=== PATIENT | male | born 1975 | race African-American/Black ===

== ENCOUNTER 2024-01-24 11:05 | Observation (INO) ==
[2024-01-24] MEDS: ASPIRIN 81 MG CHEWTAB PO ONE (11:11)
[2024-01-24] MEDS: NITROSTAT SL PRN (11:12)
--- NOTE | 2024-01-24 11:14 | DR.CP ---
HPI Time Seen Time Seen by Provider: 01/24/24 11:14 PMH PMH Past Surgical History: Yes Surgical History: Appendectomy Family History Family Medical History: Diabetes Mellitus Social History Do you use any recreational Drugs:: Yes (marijuana) PE Vitals Vitals: Vital Signs Temperature 98.1 F Pulse Rate 61 Pulse Rate 54 Pulse Rate 56 Pulse Rate 48 Pulse Rate 46 Pulse Rate 50 Pulse Rate 55 Pulse Rate 52 Pulse Rate 54 Pulse Rate 54 Pulse Rate 51 Pulse Rate 53 Pulse Rate 51 Pulse Rate 53 Pulse Rate 58 Pulse Rate 62 Pulse Rate 82 Pulse Rate 81 Pulse Rate 78 Pulse Rate 67 Respiratory Rate 16 Respiratory Rate 21 Respiratory Rate 18 Respiratory Rate 20 Respiratory Rate 20 Respiratory Rate 22 Respiratory Rate 20 Respiratory Rate 22 Respiratory Rate 22 Respiratory Rate 22 Respiratory Rate 19 Respiratory Rate 22 Respiratory Rate 22 Respiratory Rate 25 Respiratory Rate 21 Respiratory Rate 46 Respiratory Rate 20 Respiratory Rate 20 Respiratory Rate 20 Respiratory Rate 44 Respiratory Rate 40 Respiratory Rate 20 Respiratory Rate 20 Respiratory Rate 20 Blood Pressure 123/75 Blood Pressure 125/76 Blood Pressure 158/90 Blood Pressure 157/94 Blood Pressure 155/91 Blood Pressure 133/73 Blood Pressure 135/79 Blood Pressure 137/81 Blood Pressure 145/89 Blood Pressure 145/90 Blood Pressure 138/82 Blood Pressure 135/86 Blood Pressure 124/80 Blood Pressure 132/79 Blood Pressure 145/92 O2 Sat by Pulse Oximetry 99 O2 Sat by Pulse Oximetry 100 O2 Sat by Pulse Oximetry 100 O2 Sat by Pulse Oximetry 100 O2 Sat by Pulse Oximetry 100 O2 Sat by Pulse Oximetry 100 O2 Sat by Pulse Oximetry 100 O2 Sat by Pulse Oximetry 99 O2 Sat by Pulse Oximetry 99 O2 Sat by Pulse Oximetry 99 O2 Sat by Pulse Oximetry 100 O2 Sat by Pulse Oximetry 100 O2 Sat by Pulse Oximetry 100 O2 Sat by Pulse Oximetry 100 O2 Sat by Pulse Oximetry 92 O2 Sat by Pulse Oximetry 99 O2 Sat by Pulse Oximetry 96 O2 Sat by Pulse Oximetry 98 O2 Sat by Pulse Oximetry 97 O2 Sat by Pulse Oximetry 97 ROR Labs Reviewed 01/26/24 04:30 01/26/24 04:30 Laboratory: WBC 3.5 X10^3/uL (3.6-10.0) L 01/24/24 11:10 RBC 5.24 X10^6/uL (4.7-6.0) 01/24/24 11:10 Hgb 16.0 g/dL (13.5-18.0) 01/24/24 11:10 Hct 48.5 % (42.0-54.0) 01/24/24 11:10 MCV 92.4 fL (80.0-100.0) 01/24/24 11:10 MCH 30.5 pg (27.0-34.0) 01/24/24 11:10 MCHC 33.0 g/dL (33.0-35.0) 01/24/24 11:10 RDW 13.5 % (11.6-16.5) 01/24/24 11:10 Plt Count 185 X10^3/uL (150.0-450.0) 01/24/24 11:10 MPV 7.6 fL (7.4-11.0) 01/24/24 11:10 Neut % (Auto) 22.9 % (42.0-75.0) L 01/24/24 11:10 Lymph % (Auto) 46.8 % (21.0-51.0) 01/24/24 11:10 Ritchie % (Auto) 9.8 % (0.0-13.0) 01/24/24 11:10 Eos % (Auto) 19.5 % (0.9-2.9) H 01/24/24 11:10 Baso % (Auto) 1.0 % (0.2-1.0) 01/24/24 11:10 Neut # (Auto) 0.8 x10^3/uL (2.2-4.8) L 01/24/24 11:10 Lymph # (Auto) 1.6 X10^3/uL (1.3-2.9) 01/24/24 11:10 Ritchie # (Auto) 0.3 x10^3/uL (0.3-0.8) 01/24/24 11:10 Eos # (Auto) 0.7 x10^3/uL (0.0-0.2) H 01/24/24 11:10 Baso # (Auto) 0.0 X10^3/uL (0.0-0.1) 01/24/24 11:10 Absolute Nucleated RBC 0.5 /100WBC 01/24/24 11:10 PT 12.5 SECONDS (11.8-14.3) 01/24/24 11:10 INR Target Range - 01/24/24 11:10 INR 0.95 (0.8-1.3) 01/24/24 11:10 APTT 31.4 SECONDS (22.9-36.5) 01/24/24 11:10 PTT Comment - 01/24/24 11:10 D-Dimer 1.21 ug/ml (0.0-0.57) H 01/24/24 11:10 Sodium 141 mmol/L (136-145) 01/24/24 11:10 Corrected Sodium TNP 01/24/24 11:10 Potassium 4.0 mmol/L (3.5-5.1) 01/24/24 11:10 Chloride 102 mmol/L (98-107) 01/24/24 11:10 Carbon Dioxide 34.8 mmol/L (21-32) H 01/24/24 11:10 BUN 17 mg/dL (7-18) 01/24/24 11:10 Creatinine 1.02 mg/dL (0.70-1.30) 01/24/24 11:10 Est GFR (MDRD) Af Amer > 60 (>60) 01/24/24 11:10 Est GFR (MDRD) Non-Af > 60 (>60) 01/24/24 11:10 Glucose 98 mg/dL (65-99) 01/24/24 11:10 Calcium 8.8 mg/dL (8.5-10.1) 01/24/24 11:10 Corrected Calcium TNP 01/24/24 11:10 Magnesium 1.8 mg/dL (2.0-2.9) L 01/24/24 13:12 Total Bilirubin 0.20 mg/dL (0.2-1.0) 01/24/24 11:10 AST 31 Units/L (15-37) 01/24/24 11:10 ALT 33 Units/L (12-78) 01/24/24 11:10 Alkaline Phosphatase 103 Units/L (46-116) 01/24/24 11:10 Creatine Kinase 149 Units/L (39-308) 01/24/24 11:10 Troponin I High Sens 5.3 ng/L (4.0-60.0) 01/24/24 13:12 B-Natriuretic Peptide < 5.0 pg/mL (0-79) 01/24/24 11:10 Total Protein 7.8 g/dL (6.4-8.2) 01/24/24 11:10 Albumin 3.6 g/dL (3.4-5.0) 01/24/24 11:10 Globulin 4.2 g/dL (2.5-4.5) 01/24/24 11:10 Albumin/Globulin Ratio 0.9 Ratio (1.1-2.1) L 01/24/24 11:10 Thyroxine (T4) 6.1 ug/dL (4.7-13.3) 01/24/24 13:12 TSH 3rd Generation 2.240 uIU/mL (0.358-3.74) 01/24/24 13:12 Opioid Opioid Risk Tool Age (Rik box if 16-45): No History of Preadolescent Sexual Abuse: No Total: 0 Total Score Risk Category: Low Risk Copyright: Carlos Enrique WILKINS predicting aberrant behaviors Discharge Plan Diagnosis Discharge Problem: Chest pain, Elevated d-dimer, Pulmonary embolism Discharge Plan Patient Disposition: 09 ADMITTED INPATIENT Condition: Stable Orders to Discharge Patient Discharge Orders: Discharge (Routine); Ordered 01/26/24 Ordered By: PEREZ FELIX
[2024-01-24 11:23] LABS: EOSINOPHILS # (AUTO) 0.7 x10^3/uL (0.0-0.2); EOSINOPHILS % (AUTO) 19.5 % (0.9-2.9); HEMATOCRIT 48.5 % (42.0-54.0); LYMPHOCYTES # (AUTO) 1.6 X10^3/uL (1.3-2.9); LYMPHOCYTES % (AUTO) 46.8 % (21.0-51.0); MEAN CORPUSCULAR HEMOGLOBIN 30.5 pg (27.0-34.0); MEAN CORPUSCULAR VOLUME 92.4 fL (80.0-100.0); MEAN PLATELET VOLUME 7.6 fL (7.4-11.0); MONOCYTES # (AUTO) 0.3 x10^3/uL (0.3-0.8); MONOCYTES % (AUTO) 9.8 % (0.0-13.0); NEUTROPHILS # (AUTO) 0.8 x10^3/uL (2.2-4.8); NEUTROPHILS % (AUTO) 22.9 % (42.0-75.0); PLATELET COUNT 185 X10^3/uL (150.0-450.0); RED BLOOD COUNT 5.24 X10^6/uL (4.7-6.0); RED CELL DISTRIBUTION WIDTH 13.5 % (11.6-16.5); WHITE BLOOD COUNT 3.5 X10^3/uL (3.6-10.0)
[2024-01-24 11:28] LABS: INR 0.95 (0.8-1.3)
[2024-01-24] MEDS: TORADOL 30 MG VIAL IVP ONE (11:30)
[2024-01-24] MEDS: PEPCID 20 MG VIAL IVP ONE (11:30)
[2024-01-24 11:38] LABS: ALANINE AMINOTRANSFERASE 33 Units/L (12-78); ALBUMIN 3.6 g/dL (3.4-5.0); ALKALINE PHOSPHATASE 103 Units/L (46-116); ASPARTATE AMINO TRANSFERASE 31 Units/L (15-37); BLOOD UREA NITROGEN 17 mg/dL (7-18); CALCIUM 8.8 mg/dL (8.5-10.1); CARBON DIOXIDE 34.8 mmol/L (21-32); CHLORIDE 102 mmol/L (98-107); CREATINE KINASE 149 Units/L (39-308); CREATININE 1.02 mg/dL (0.70-1.30); GLUCOSE 98 mg/dL (65-99); SODIUM 141 mmol/L (136-145); TOTAL PROTEIN 7.8 g/dL (6.4-8.2); eGFR NON BLACK RACES > 60 (>60)
--- NOTE | 2024-01-24 11:44 | RAD ---
EXAM:CHEST, 1 VIEWHISTORY:CHEST PAIN;COMPARISON:No relevant prior studies were available for comparison at the time of interpretation.TECHNIQUE:CHEST, 1 VIEWFINDINGS:Chest:Lines and tubes: Cardiac leads overlie the chest.Mediastinum: Cardiac and mediastinal shadow is within normal limits for size and contour.Pulmonary vessels: No pulmonary vascular congestion.Lung chakraborty: No suspicious airspace opacity.Pleura: No effusion. No pneumothorax.Bones and soft tissues: No acute osseous or soft tissue abnormality.IMPRESSION:1. No acute cardiopulmonary abnormalityTHIS IS AN ELECTRONICALLY VERIFIED FINAL REPORT01/24/2024 11:41 AM - Electronically signed by Moe Yoder MD
[2024-01-24] MEDS: HEPARIN SODIUM IN D5W 25,000 UNITS/500 ML BAG IV PRN (14:34)
[2024-01-24] MEDS: HEPARIN SODIUM INJ 5000 UNITS IVP ONE (14:34)
--- NOTE | 2024-01-24 14:34 | VAS ---
EXAM: LOWER EXT VENOUS, BILATERAL HISTORY: DYSPNEA, ELEVATED D-DIMER; COMPARISON: None available. TECHNIQUE: Multiple lópez scale and color flow Doppler images of the deep venous system were obtained of the righ t and left lower extremity. FINDINGS: The deep venous system of the right and left lower extremities were evaluated from the level of the c ommon femoral vein through the popliteal vein. Normal color flow and augmentation can be observed. In addition, normal compression is seen throughout the deep venous system. IMPRESSION: Negative for DVT. THIS IS AN ELECTRONICALLY VERIFIED FINAL REPORT 01/24/2024 2:31 PM - Electronically signed by Diego Garcia MD
[2024-01-24] MEDS: NITROSTAT ONE (14:43)
[2024-01-24] MEDS: TORADOL 30 MG VIAL ONE (14:43)
[2024-01-24] MEDS: PEPCID 20 MG VIAL ONE (14:43)
[2024-01-24] MEDS: ASPIRIN 81 MG CHEWTAB ONE (14:43)
[2024-01-24] MEDS: HEPARIN SODIUM INJ 5000 UNITS ONE (14:46)
[2024-01-24] MEDS: HEPARIN SODIUM IN D5W 25,000 UNITS/500 ML BAG ONE (14:46)
[2024-01-24] MEDS: PEPCID 20 MG VIAL 20 MG in NS 50 ML IV 50 ML IV ONE (14:53)
[2024-01-24 15:15] VITALS: BMI 30.8
[2024-01-24 19:15] LABS: MAGNESIUM 1.8 mg/dL (2.0-2.9); T4 (THYROXINE) 6.1 ug/dL (4.7-13.3); TSH (3RD GENERATION) 2.24 uIU/mL (0.358-3.74)
[2024-01-24] MEDS ORDERED: CONSULT PHARMACY - POTASSIUM & MAGNESIUM XX SCH (20:00)
[2024-01-24] MEDS: PEPCID 20 MG VIAL IVP SCH (20:26)
[2024-01-24] MEDS: ZyrTEC TAB 10 MG PO SCH (20:26)
[2024-01-24] MEDS: MAG-OX TAB PO SCH (20:26)
[2024-01-25 02:44] LABS: BASOPHILS # (AUTO) 0.1 X10^3/uL (0.0-0.1); BASOPHILS % (AUTO) 2.5 % (0.2-1.0); EOSINOPHILS # (AUTO) 0.7 x10^3/uL (0.0-0.2); EOSINOPHILS % (AUTO) 17.9 % (0.9-2.9); HEMATOCRIT 45.1 % (42.0-54.0); HEMOGLOBIN 14.9 g/dL (13.5-18.0); LYMPHOCYTES # (AUTO) 1.5 X10^3/uL (1.3-2.9); MEAN CORPUSCULAR HEMOGLOBIN 30.3 pg (27.0-34.0); MEAN CORPUSCULAR HGB CONC 33.1 g/dL (33.0-35.0); MEAN CORPUSCULAR VOLUME 91.5 fL (80.0-100.0); MEAN PLATELET VOLUME 7.2 fL (7.4-11.0); MONOCYTES # (AUTO) 0.3 x10^3/uL (0.3-0.8); MONOCYTES % (AUTO) 7.4 % (0.0-13.0); NEUTROPHILS # (AUTO) 1.3 x10^3/uL (2.2-4.8); NEUTROPHILS % (AUTO) 34.2 % (42.0-75.0); PLATELET COUNT 170 X10^3/uL (150.0-450.0); RED BLOOD COUNT 4.93 X10^6/uL (4.7-6.0); RED CELL DISTRIBUTION WIDTH 13.8 % (11.6-16.5); WHITE BLOOD COUNT 3.9 X10^3/uL (3.6-10.0)
[2024-01-25 03:02] LABS: ALANINE AMINOTRANSFERASE 26 Units/L (12-78); ALBUMIN 3.2 g/dL (3.4-5.0); ALKALINE PHOSPHATASE 92 Units/L (46-116); ASPARTATE AMINO TRANSFERASE 25 Units/L (15-37); BLOOD UREA NITROGEN 10 mg/dL (7-18); CALCIUM 7.9 mg/dL (8.5-10.1); CARBON DIOXIDE 28.1 mmol/L (21-32); CHLORIDE 104 mmol/L (98-107); COR CA(FOR HYPOALB) 8.5 mg/dL (8.5-10.1); CREATININE 0.95 mg/dL (0.70-1.30); GLUCOSE 105 mg/dL (65-99); MAGNESIUM 1.6 mg/dL (2.0-2.9); SODIUM 138 mmol/L (136-145); eGFR NON BLACK RACES > 60 (>60)
[2024-01-25] MEDS ORDERED: CONSULT PHARMACY - POTASSIUM & MAGNESIUM XX SCH (07:00)
[2024-01-25] MEDS: MAG-OX TAB PO SCH (09:31)
--- NOTE | 2024-01-25 11:42 | NM ---
EXAM: PERFUSION LUNG SCAN ONLY HISTORY: CP, ELEVATED D DIMER; 6.0mCi 99mTc MAAPerfusion onlyChest xray to follow COMPARISON: Chest imaging dated: 01/24/2024 TECHNIQUE: Perfusion only study was performed. Subsequently, following the intravenous administration of 6 mCi Tc-99m MAA, planar lung images were also obtained in multiple projections. FINDINGS: There is a moderate defect in the superior segment of the left lower lobe and segmental defect in the left lower lobe.. IMPRESSION: Intermediate probability for pulmonary embolus.. Consider CTA of the chest for further assessment THIS IS AN ELECTRONICALLY VERIFIED FINAL REPORT 01/25/2024 11:39 AM - Electronically signed by Andrew Blanco MD
--- NOTE | 2024-01-25 13:21 | RAD ---
EXAM:CHEST, 1 VIEWHISTORY:compare with lung scan;COMPARISON:Prior study or studies were utilized for comparison during interpretation with the most relevant dated 01/24/2024TECHNIQUE:CHEST, 1 VIEWFINDINGS:Chest:Lines and tubes: Cardiac leads overlie the chest.Mediastinum: Cardiac and mediastinal shadow is within normal limits for size and contour.Pulmonary vessels: No pulmonary vascular congestion.Lung chakraborty: No suspicious airspace opacity.Pleura: No effusion. No pneumothorax.Bones and soft tissues: No acute osseous or soft tissue abnormality.IMPRESSION:1. No acute cardiopulmonary abnormalityTHIS IS AN ELECTRONICALLY VERIFIED FINAL REPORT01/25/2024 1:18 PM - Electronically signed by Moe Yoder MD
[2024-01-25] MEDS: MAALOX or MYLANTA PO PRN (17:00)
[2024-01-25] MEDS: PREDNISONE TAB 10 MG PO SCH ×2 (17:00→23:44)
[2024-01-25 18:38] LABS: BASOPHILS % (AUTO) 0.9 % (0.2-1.0); EOSINOPHILS # (AUTO) 0.9 x10^3/uL (0.0-0.2); HEMATOCRIT 47.2 % (42.0-54.0); HEMOGLOBIN 15.6 g/dL (13.5-18.0); LYMPHOCYTES # (AUTO) 1.8 X10^3/uL (1.3-2.9); LYMPHOCYTES % (AUTO) 36.5 % (21.0-51.0); MEAN CORPUSCULAR HEMOGLOBIN 30.4 pg (27.0-34.0); MEAN CORPUSCULAR HGB CONC 33.1 g/dL (33.0-35.0); MEAN PLATELET VOLUME 7.3 fL (7.4-11.0); MONOCYTES # (AUTO) 0.4 x10^3/uL (0.3-0.8); MONOCYTES % (AUTO) 7.5 % (0.0-13.0); NEUTROPHILS # (AUTO) 1.9 x10^3/uL (2.2-4.8); NEUTROPHILS % (AUTO) 38.1 % (42.0-75.0); PLATELET COUNT 172 X10^3/uL (150.0-450.0); RED BLOOD COUNT 5.13 X10^6/uL (4.7-6.0); RED CELL DISTRIBUTION WIDTH 13.6 % (11.6-16.5)
[2024-01-25 19:13] LABS: CRYPTOSPORIDIUM PARVUM ANTIGEN NEGATIVE (NEGATIVE); GIARDIA LAMBLIA ANTIGEN NEGATIVE (NEGATIVE)
[2024-01-25] MEDS: LEVSIN/MAALOX/LIDOC VISC PO ONE (20:09)
[2024-01-25] MEDS: TORADOL 30 MG VIAL IVP ONE (20:09)
[2024-01-25] MEDS: PROTONIX INJ 40 MG VIAL IVP SCH (21:04)
[2024-01-26] MEDS: PREDNISONE TAB 10 MG PO SCH (05:04)
[2024-01-26] MEDS: BENADRYL CAP 50 MG PO SCH (05:05)
[2024-01-26 05:39] LABS: BASOPHILS % (AUTO) 0.5 % (0.2-1.0); EOSINOPHILS % (AUTO) 0.1 % (0.9-2.9); HEMATOCRIT 48.5 % (42.0-54.0); HEMOGLOBIN 16.2 g/dL (13.5-18.0); LYMPHOCYTES # (AUTO) 0.7 X10^3/uL (1.3-2.9); LYMPHOCYTES % (AUTO) 17.1 % (21.0-51.0); MEAN CORPUSCULAR HEMOGLOBIN 30.4 pg (27.0-34.0); MEAN CORPUSCULAR HGB CONC 33.3 g/dL (33.0-35.0); MEAN CORPUSCULAR VOLUME 91.4 fL (80.0-100.0); MEAN PLATELET VOLUME 8.3 fL (7.4-11.0); MONOCYTES # (AUTO) 0.1 x10^3/uL (0.3-0.8); MONOCYTES % (AUTO) 2.3 % (0.0-13.0); NEUTROPHILS # (AUTO) 3.4 x10^3/uL (2.2-4.8); PLATELET COUNT 184 X10^3/uL (150.0-450.0); RED BLOOD COUNT 5.31 X10^6/uL (4.7-6.0); WHITE BLOOD COUNT 4.3 X10^3/uL (3.6-10.0)
[2024-01-26 05:47] LABS: ALANINE AMINOTRANSFERASE 32 Units/L (12-78); ALBUMIN 3.4 g/dL (3.4-5.0); ALKALINE PHOSPHATASE 95 Units/L (46-116); ASPARTATE AMINO TRANSFERASE 24 Units/L (15-37); BLOOD UREA NITROGEN 10 mg/dL (7-18); CALCIUM 8.8 mg/dL (8.5-10.1); CARBON DIOXIDE 28.9 mmol/L (21-32); CHLORIDE 102 mmol/L (98-107); COR NA(FOR HYPERGLY) 139 mmol/L (136-145); GLUCOSE 138 mg/dL (65-99); POTASSIUM 4.8 mmol/L (3.5-5.1); SODIUM 138 mmol/L (136-145); TOTAL PROTEIN 7.8 g/dL (6.4-8.2); eGFR NON BLACK RACES > 60 (>60)
[2024-01-26] MEDS: NS 100 ML IV 100 ML ONE (06:18)
[2024-01-26] MEDS: OMNIPAQUE 350 mg/mL 100 mL BTL 100 ML ONE (06:19)
--- NOTE | 2024-01-26 07:08 | CT ---
EXAM:CTA chest with contrast for pulmonary embolusHISTORY:Pulmonary embolusTECHNIQUE:Axial postcontrast images with coronal and sagittal reformats. Three-dimensional maximum intensity projection images were obtained and evaluated. Dose reduction techniques were used with MA/kv adjusted for body size.COMPARISON:Perfusion lung scan 01/25/2024FINDINGS:There is no evidence for acute pulmonary thromboembolic disease. Specifically, no definite embolic disease in the left lower lobe. Examination of the mediastinum demonstrated no evidence for mediastinal mass, abnormal mediastinal or abnormal hilar adenopathy. No significant aortic abnormality identified. No pleural effusions are identified. No chest wall or axillary abnormality is identified. Those portions of the upper abdominal organs visualized appeared within normal limits to the limitations of early arterial injection timing with exception of cholelithiasis. There is a question of some gallbladder wall thickening and possible pericholecystic inflammation. Cholecystitis is not excluded. Gallbladder sonography is recommended for further evaluation of the gallbladder wall. Nuclear medicine biliary scan would be of further diagnostic value in assessing cystic duct patency. Diffuse thoracic spondylosis is present. Examination of the lung chakraborty demonstrated no evidence for pulmonary masses, alveolar infiltrates, areas of consolidation, or bronchiectasis. There is diffuse mild peribronchial thickening consistent with bronchitis which could be acute, chronic, or both. Best visualized on CT series 10, image 48 is a 4.5 mm nodular density which appears to be within the minor fissure most likely representing an intra fissural lymph node. However, follow-up chest CT in 6 months is recommended to assess for stability.IMPRESSION:No evidence for acute pulmonary thromboembolic diseaseCholelithiasis with a suggestion of possible early cholecystitis. Correlation with gallbladder sonography is recommended. Nuclear medicine biliary scan may also be of further diagnostic value in assessing cystic duct patency.No acute lung infiltrates4.5 mm nodular density which appears to be within minor fissure and most likely represents a benign intra fissural lymph node. However chest CT in 6 months is recommended to assess for stability.THIS IS AN ELECTRONICALLY VERIFIED FINAL REPORT01/26/2024 7:04 AM - Electronically signed by Floyd Andrade MD
--- NOTE | 2024-01-26 08:37 | EKG ---
Test Reason : Chest pain Blood Pressure : */* mmHG Vent. Rate : 71 BPM Atrial Rate : 71 BPM P-R Int : 182 ms QRS Dur : 78 ms QT Int : 390 ms P-R-T Axes : 48 10 19 degrees QTc Int : 423 ms Normal sinus rhythm with sinus arrhythmia Normal ECG When compared with ECG of 25-JAN-2024 23:50, (Unconfirmed) Vent. rate has increased BY 23 BPM Confirmed by Andrea Price MD ([id number]) on 01/26/2024 8:29:14 AM Referred By: Confirmed By: Andrea Price MD
--- NOTE | 2024-01-26 08:37 | EKG ---
Test Reason : Chest pain Blood Pressure : */* mmHG Vent. Rate : 48 BPM Atrial Rate : 48 BPM P-R Int : 208 ms QRS Dur : 70 ms QT Int : 436 ms P-R-T Axes : 35 36 36 degrees QTc Int : 389 ms Sinus bradycardia Otherwise normal ECG When compared with ECG of 25-JAN-2024 17:47, (Unconfirmed) No significant change was found Confirmed by Andrea Price MD ([id number]) on 01/26/2024 8:29:23 AM Referred By: Confirmed By: Andrea Price MD
--- NOTE | 2024-01-26 08:37 | EKG ---
Test Reason : chest pain Blood Pressure : */* mmHG Vent. Rate : 75 BPM Atrial Rate : 75 BPM P-R Int : 196 ms QRS Dur : 84 ms QT Int : 404 ms P-R-T Axes : -7 49 33 degrees QTc Int : 451 ms Normal sinus rhythm Normal ECG No previous ECGs available Confirmed by Andrea Price MD ([id number]) on 01/24/2024 1:46:35 PM Referred By: Confirmed By: Andrea Price MD
--- NOTE | 2024-01-26 08:37 | EKG ---
Test Reason : chest pain Blood Pressure : */* mmHG Vent. Rate : 50 BPM Atrial Rate : 50 BPM P-R Int : 200 ms QRS Dur : 92 ms QT Int : 440 ms P-R-T Axes : 34 56 8 degrees QTc Int : 401 ms Sinus bradycardia Possible Anterior infarct , age undetermined Abnormal ECG When compared with ECG of 24-JAN-2024 11:10, Vent. rate has decreased BY 25 BPM Confirmed by Andrea Price MD ([id number]) on 01/26/2024 8:29:02 AM Referred By: Confirmed By: Andrea Price MD
[2024-01-26 12:43] VITALS: BP 125/73; PULSE 60; RESP 22; TEMP 98; O2SAT 96
--- NOTE | 2024-01-26 13:33 | EKG ---
Test Reason : Chest pain Blood Pressure : */* mmHG Vent. Rate : 56 BPM Atrial Rate : 56 BPM P-R Int : 184 ms QRS Dur : 84 ms QT Int : 402 ms P-R-T Axes : 57 31 15 degrees QTc Int : 387 ms Sinus bradycardia Otherwise normal ECG When compared with ECG of 26-JAN-2024 06:04, No significant change was found Confirmed by Andrea Price MD ([id number]) on 01/27/2024 7:03:11 AM Referred By: Confirmed By: Andrea Price MD
--- NOTE | 2024-01-26 14:45 | US ---
EXAMINATION:GALL BLADDERHISTORY:RUQ PAIN; .COMPARISON STUDY:Report CT thorax 01/26/2024TECHNIQUE:Real-time grayscale, color flow, duplex Doppler spectral analysis right upper abdomenFINDINGS:The gallbladder is mildly distended. There is cholelithiasis with a 2.9 cm stone neck of the gallbladder. Gallbladder avalos are thickened measuring 4.4 mm diameter. Trace edema along the avalos of the gallbladder. The common bile duct measures 4.7 mm diameter.The liver measures 16 cm longitudinal oblique dimension. Normal venous waveforms within the imaged IVC, main portal vein.Right kidney measures 11.2 x 4.5 x 5.6 cm and contains multiple cysts.Pancreas obscured.IMPRESSION:Cholelithiasis, diffuse thickening of the avalos of the gallbladder with trace edema along the avalos of the gallbladder suspicious for acute cholecystitis. Recommend close clinical correlation and follow-up. Further diagnostic imaging would include a HIDA scan if clinically indicated.THIS IS AN ELECTRONICALLY VERIFIED FINAL REPORT01/26/2024 2:42 PM - Electronically signed by Lois Zapata MD
--- NOTE | 2024-02-02 17:20 | DR.H&P ---
H&P History & Physical for Day of: H&P Date: 01/24/24 Chief Complaint Chief Complaint: This is a 48-year-old male who is an ER admission after presenting earlier this morning with sudden onset of epigastric pain radiating across the upper abdomen, severe in nature. He reports cough, shortness of breath and mild nausea. ER workup included labs that revealed wbc 3.5, hgb 16, 1 7/1.02, elevated d-dimer at 1.21. EKG showed normal sinus rhythm. A chest xray was obtained and showed no acute process. He had a bilateral lower extremity doppler that was negative for dvt. Past Surgical History Surgical History: Appendectomy Family History Family Medical History: Diabetes Mellitus, Cancer, DE and Hypertension Social History Does patient currently use any type of tobacco product: Yes Have you used tobacco products in the last 12 months: Yes Type of Tobacco Use: Cigarettes Does any household member use tobacco: No Alcohol Use: None Drug Use: Marijuana Medications Home Medications: Home Medications Medication Instructions Recorded Confirmed Type NK 01/24/24 01/24/24 History Allergies Allergies Allergy/AdvReac Type Severity Reaction Status Date / Time iodine Allergy Verified 01/24/24 11:40 Labs 01/26/24 04:30 01/26/24 04:30 Labs: Laboratory WBC 4.3 X10^3/uL (3.6-10.0) 01/26/24 04:30 RBC 5.31 X10^6/uL (4.7-6.0) 01/26/24 04:30 Hgb 16.2 g/dL (13.5-18.0) 01/26/24 04:30 Hct 48.5 % (42.0-54.0) 01/26/24 04:30 MCV 91.4 fL (80.0-100.0) 01/26/24 04:30 MCH 30.4 pg (27.0-34.0) 01/26/24 04:30 MCHC 33.3 g/dL (33.0-35.0) 01/26/24 04:30 RDW 14.0 % (11.6-16.5) 01/26/24 04:30 Plt Count 184 X10^3/uL (150.0-450.0) 01/26/24 04:30 MPV 8.3 fL (7.4-11.0) 01/26/24 04:30 Neut % (Auto) 80.0 % (42.0-75.0) H 01/26/24 04:30 Lymph % (Auto) 17.1 % (21.0-51.0) L 01/26/24 04:30 [place]ukes % (Auto) 2.3 % (0.0-13.0) 01/26/24 04:30 Eos % (Auto) 0.1 % (0.9-2.9) L 01/26/24 04:30 Baso % (Auto) 0.5 % (0.2-1.0) 01/26/24 04:30 Neut # (Auto) 3.4 x10^3/uL (2.2-4.8) 01/26/24 04:30 Lymph # (Auto) 0.7 X10^3/uL (1.3-2.9) L 01/26/24 04:30 Dukes # (Auto) 0.1 x10^3/uL (0.3-0.8) L 01/26/24 04:30 Eos # (Auto) 0.0 x10^3/uL (0.0-0.2) 01/26/24 04:30 Baso # (Auto) 0.0 X10^3/uL (0.0-0.1) 01/26/24 04:30 Absolute Nucleated RBC 0.3 /100WBC 01/26/24 04:30 PT 12.5 SECONDS (11.8-14.3) 01/24/24 11:10 INR Target Range - 01/24/24 11:10 INR 0.95 (0.8-1.3) 01/24/24 11:10 APTT 82.1 SECONDS (22.9-36.5) H 01/26/24 04:30 PTT Comment - 01/26/24 04:30 D-Dimer 0.70 ug/ml (0.0-0.57) H 01/25/24 08:58 Sodium 138 mmol/L (136-145) 01/26/24 04:30 Corrected Sodium 139 mmol/L (136-145) 01/26/24 04:30 Potassium 4.8 mmol/L (3.5-5.1) 01/26/24 04:30 Chloride 102 mmol/L (98-107) 01/26/24 04:30 Carbon Dioxide 28.9 mmol/L (21-32) 01/26/24 04:30 BUN 10 mg/dL (7-18) 01/26/24 04:30 Creatinine 1.00 mg/dL (0.70-1.30) 01/26/24 04:30 Est GFR (MDRD) Af Amer > 60 (>60) 01/26/24 04:30 Est GFR (MDRD) Non-Af > 60 (>60) 01/26/24 04:30 Glucose 138 mg/dL (65-99) H 01/26/24 04:30 Calcium 8.8 mg/dL (8.5-10.1) 01/26/24 04:30 Corrected Calcium TNP 01/26/24 04:30 Magnesium 2.0 mg/dL (2.0-2.9) 01/26/24 04:30 Total Bilirubin 0.20 mg/dL (0.2-1.0) 01/26/24 04:30 AST 24 Units/L (15-37) 01/26/24 04:30 ALT 32 Units/L (12-78) 01/26/24 04:30 Alkaline Phosphatase 95 Units/L (46-116) 01/26/24 04:30 Creatine Kinase 120 Units/L (39-308) 01/25/24 18:30 Troponin I High Sens 7.2 ng/L (4.0-60.0) 01/25/24 18:30 Troponin I High Sens Cancelled 01/25/24 18:30 B-Natriuretic Peptide < 5.0 pg/mL (0-79) 01/24/24 11:10 Total Protein 7.8 g/dL (6.4-8.2) 01/26/24 04:30 Albumin 3.4 g/dL (3.4-5.0) 01/26/24 04:30 Globulin 4.4 g/dL (2.5-4.5) 01/26/24 04:30 Albumin/Globulin Ratio 0.8 Ratio (1.1-2.1) L 01/26/24 04:30 Thyroxine (T4) 6.1 ug/dL (4.7-13.3) 01/24/24 13:12 TSH 3rd Generation 2.240 uIU/mL (0.358-3.74) 01/24/24 13:12 Stl Occult Blood (IFOB) Negative (NEGATIVE) 01/25/24 18:25 Cryptosporid parvum Ag Negative (NEGATIVE) 01/25/24 18:25 Giardia lamblia Ag Negative (NEGATIVE) 01/25/24 18:25 Review of Systems Constitutional: No Symptoms Reported Eyes: No Symptoms Reported ENT: No Symptoms Reported Respiratory: Cough and Shortness of Breath Cardiovascular: Chest Pain Gastrointestinal: Nausea Genitourinary: No Symptoms Reported Musculoskeletal: No Symptoms Reported Skin: No Symptoms Reported Neurological: No Symptoms Reported Oriented: Normal Eyes: Normal Ear: Normal Nose: Normal Throat: Normal Respiratory: Clear Throughout Cardiovascular: Normal : Normal Auscultation: Bowel Sounds: Normal Palpation: Normal Tenderness: RUQ and Epigastric Skin: Normal Musculoskeletal: Normal Psychiatric: Normal Mood Description: Calm Speech Pattern: Clear Assessment/Plan (1) Elevated d-dimer: Status: Acute Plan: ADMIT, HEPARIN DRIP, ABG ON ROOM AIR, PT/PTT, TSH/FREE T4, ASPIRIN, PECPID, NITRO PRN, SUPPLEMENTAL 02 PRN, CARDIAC MONITORING. VQ SCAN PLANNED FOR AM. (2) Chest pain: Status: Acute
--- NOTE | 2024-02-02 17:21 | PCM.DCPLAN ---
DISCHARGE SUMMARY Admission Date Date of Admission: 01/24/24 Discharge Date Discharge Date: 01/26/24 Admission Diagnoses (1) Elevated d-dimer: Status: Acute (2) Chest pain: Status: Acute Discharge Diagnoses Discharge Diagnosis: improved elevated d-dimer, chest pain resolved. Discharge Medications Discharge Medications: Home Medication List NK 01/24/24 [History] Prescriptions: Hospital Course Latest Lab Results: Laboratory Last Values WBC 4.3 X10^3/uL (3.6-10.0) 01/26/24 04:30 RBC 5.31 X10^6/uL (4.7-6.0) 01/26/24 04:30 Hgb 16.2 g/dL (13.5-18.0) 01/26/24 04:30 Hct 48.5 % (42.0-54.0) 01/26/24 04:30 MCV 91.4 fL (80.0-100.0) 01/26/24 04:30 MCH 30.4 pg (27.0-34.0) 01/26/24 04:30 MCHC 33.3 g/dL (33.0-35.0) 01/26/24 04:30 RDW 14.0 % (11.6-16.5) 01/26/24 04:30 Plt Count 184 X10^3/uL (150.0-450.0) 01/26/24 04:30 MPV 8.3 fL (7.4-11.0) 01/26/24 04:30 Neut % (Auto) 80.0 % (42.0-75.0) H 01/26/24 04:30 Lymph % (Auto) 17.1 % (21.0-51.0) L 01/26/24 04:30 [place] % (Auto) 2.3 % (0.0-13.0) 01/26/24 04:30 Eos % (Auto) 0.1 % (0.9-2.9) L 01/26/24 04:30 Baso % (Auto) 0.5 % (0.2-1.0) 01/26/24 04:30 Neut # (Auto) 3.4 x10^3/uL (2.2-4.8) 01/26/24 04:30 Lymph # (Auto) 0.7 X10^3/uL (1.3-2.9) L 01/26/24 04:30 [place] # (Auto) 0.1 x10^3/uL (0.3-0.8) L 01/26/24 04:30 Eos # (Auto) 0.0 x10^3/uL (0.0-0.2) 01/26/24 04:30 Baso # (Auto) 0.0 X10^3/uL (0.0-0.1) 01/26/24 04:30 Absolute Nucleated RBC 0.3 /100WBC 01/26/24 04:30 PT 12.5 SECONDS (11.8-14.3) 01/24/24 11:10 INR Target Range - 01/24/24 11:10 INR 0.95 (0.8-1.3) 01/24/24 11:10 APTT 82.1 SECONDS (22.9-36.5) H 01/26/24 04:30 PTT Comment - 01/26/24 04:30 D-Dimer 0.70 ug/ml (0.0-0.57) H 01/25/24 08:58 Sodium 138 mmol/L (136-145) 01/26/24 04:30 Corrected Sodium 139 mmol/L (136-145) 01/26/24 04:30 Potassium 4.8 mmol/L (3.5-5.1) 01/26/24 04:30 Chloride 102 mmol/L (98-107) 01/26/24 04:30 Carbon Dioxide 28.9 mmol/L (21-32) 01/26/24 04:30 BUN 10 mg/dL (7-18) 01/26/24 04:30 Creatinine 1.00 mg/dL (0.70-1.30) 01/26/24 04:30 Est GFR (MDRD) Af Amer > 60 (>60) 01/26/24 04:30 Est GFR (MDRD) Non-Af > 60 (>60) 01/26/24 04:30 Glucose 138 mg/dL (65-99) H 01/26/24 04:30 Calcium 8.8 mg/dL (8.5-10.1) 01/26/24 04:30 Corrected Calcium TNP 01/26/24 04:30 Magnesium 2.0 mg/dL (2.0-2.9) 01/26/24 04:30 Total Bilirubin 0.20 mg/dL (0.2-1.0) 01/26/24 04:30 AST 24 Units/L (15-37) 01/26/24 04:30 ALT 32 Units/L (12-78) 01/26/24 04:30 Alkaline Phosphatase 95 Units/L (46-116) 01/26/24 04:30 Creatine Kinase 120 Units/L (39-308) 01/25/24 18:30 Troponin I High Sens 7.2 ng/L (4.0-60.0) 01/25/24 18:30 Troponin I High Sens Cancelled 01/25/24 18:30 B-Natriuretic Peptide < 5.0 pg/mL (0-79) 01/24/24 11:10 Total Protein 7.8 g/dL (6.4-8.2) 01/26/24 04:30 Albumin 3.4 g/dL (3.4-5.0) 01/26/24 04:30 Globulin 4.4 g/dL (2.5-4.5) 01/26/24 04:30 Albumin/Globulin Ratio 0.8 Ratio (1.1-2.1) L 01/26/24 04:30 Thyroxine (T4) 6.1 ug/dL (4.7-13.3) 01/24/24 13:12 TSH 3rd Generation 2.240 uIU/mL (0.358-3.74) 01/24/24 13:12 Stl Occult Blood (IFOB) Negative (NEGATIVE) 01/25/24 18:25 Cryptosporid parvum Ag Negative (NEGATIVE) 01/25/24 18:25 Giardia lamblia Ag Negative (NEGATIVE) 01/25/24 18:25 Hospital Course: This is a 48-year-old male who is an ER admission on 01/23 after presenting with sudden onset of epigastric pain radiating across the upper abdomen with cough, shortness of breath and mild nausea. ER workup included labs that revealed wbc 3.5, hgb 16, 17/1.02, elevated d-dimer at 1.21. EKG showed normal sinus rhythm. A chest xray was obtained and showed no acute process. He had a bilateral lower extremity doppler that was negative for dvt. Upon admission, he was started on a heprin drip, aspirin, pepcid, nitro prn, and supplemental 02 as needed. General surgery was consulted. His repeat d-dimer yesterday morning was 0.70. He refused ABG related to pain with draw. He was able to maintain oxygenation on room air at 99%. He had a VQ scan yesterday that showed intermediate probability for pulmonary embolus. We obtained a CTA chest that ruled out PE, but did show thickened gallbladder wall with gallstones and suspicion of acute cholecystitis. We obtained a gallbladder ultrasound that showed Cholelithiasis, diffuse thickening of the avalos of the gallbladder with trace edema along the avalos of the gallbladder suspicious for acute cholecystitis. His repeat chest xray this morning was clear. He states that his abdominal pain, shortness of breath have mostly resolved at this time. He is eager to discharge home related to needing to attend father's planned for tomorrow. We will allow him to discharge home. He will need to follow up with Dr. Babcock and has an appointment scheduled for 02/09 at 3:30 PM. Please see discharge plan for list of discharge medications and modifications that we made, electronic medical record for diagnostic tests and labs. The patient was instructed to return to the ER if condition changed or worsened unexpectedly.
== END 2024-01-26 14:17 | disposition home or self-care (01) ==
LOC: ICU 11:05 → ER 11:05 → OBSVTOIN 14:14 → INTOOBSV 14:14 → ICU 14:54
PROVIDERS: ADMIT Internal Medicine; ATTEND Internal Medicine
DX: R79.1 Abnormal coagulation profile; K21.9 Gastro-esophageal reflux disease without esophagitis; K80.00 Calculus of gallbladder with acute cholecystitis without obstruction; R10.11 Right upper quadrant pain; R94.31 Abnormal electrocardiogram [ECG] [EKG]; R07.89 Other chest pain; E83.42 Hypomagnesemia; R06.02 Shortness of breath

== ENCOUNTER 2024-05-15 21:19 | Observation (INO) ==
[2024-05-15] MEDS: APRESOLINE INJ 20 MG VIAL IVP ONE (21:47)
--- NOTE | 2024-05-15 21:48 | DR.CP ---
HPI Time Seen Time Seen by Provider: 05/15/24 21:48 PCP Primary Care Physician: LIVIA Complaint Chief Complaint:: PT AMBULATORY IN ED WITH C/O RIGHT UPPER ABD AND EPIGASTRIC PAIN SINCE EARILER TODAY. COVID-19 Coronavirus risk:travel/contact w/high risk person: No Has patient experienced Coronavirus symptoms: No Source History Provided: Patient Mode of Arrival Mode of Arrival: Ambulatory Timing Onset of Chief Complaint: 05/15/24 PMH PMH Past Medical History: No Past Surgical History: Yes Surgical History: Appendectomy Family History History of Family Medical Conditions: Yes Family Medical History: Diabetes Mellitus, Cancer, [place], Coronary Artery Disease and Hypertension Social History Does patient currently use any type of tobacco product: Yes Have you used tobacco products in the last 12 months: Yes Type of Tobacco Use: Cigarettes Does any household member use tobacco: No Alcohol Use: None Do you use any recreational Drugs:: Yes (MARIJUANA) Lives With: Alone Lives Where: Home Travel Risk Coronavirus risk:travel/contact w/high risk person: No Has patient experienced Coronavirus symptoms: No Infectious screening In the last 2 months have you had wt loss of >10#?: NO Have you had fever, night sweats or hemotysis?: No Have you traveled outside the country in the last 6 months?: No Isolation: Standard PE Vitals Vitals: Vital Signs Temperature 98.2 F Pulse Rate 61 Pulse Rate 56 Pulse Rate 56 Pulse Rate 61 Pulse Rate 60 Pulse Rate 60 Pulse Rate 58 Pulse Rate 58 Pulse Rate 60 Pulse Rate 67 Pulse Rate 61 Pulse Rate 60 Pulse Rate 57 Pulse Rate 66 Pulse Rate 62 Pulse Rate 63 Pulse Rate 63 Pulse Rate 69 Pulse Rate 63 Respiratory Rate 18 Respiratory Rate 18 Respiratory Rate 21 Respiratory Rate 19 Respiratory Rate 19 Respiratory Rate 22 Respiratory Rate 23 Respiratory Rate 23 Respiratory Rate 25 Respiratory Rate 34 Respiratory Rate 24 Respiratory Rate 26 Respiratory Rate 18 Respiratory Rate 42 Respiratory Rate 41 Respiratory Rate 34 Respiratory Rate 28 Respiratory Rate 22 Blood Pressure 112/56 Blood Pressure 125/64 Blood Pressure 142/70 Blood Pressure 121/62 Blood Pressure 124/63 Blood Pressure 130/72 Blood Pressure 142/74 Blood Pressure 142/74 Blood Pressure 149/71 Blood Pressure 175/109 Blood Pressure 174/102 Blood Pressure 182/97 Blood Pressure 213/112 Blood Pressure 190/111 Blood Pressure 177/103 Blood Pressure 177/103 O2 Sat by Pulse Oximetry 98 O2 Sat by Pulse Oximetry 98 O2 Sat by Pulse Oximetry 99 O2 Sat by Pulse Oximetry 99 O2 Sat by Pulse Oximetry 99 O2 Sat by Pulse Oximetry 99 O2 Sat by Pulse Oximetry 99 O2 Sat by Pulse Oximetry 99 O2 Sat by Pulse Oximetry 99 O2 Sat by Pulse Oximetry 100 O2 Sat by Pulse Oximetry 99 O2 Sat by Pulse Oximetry 98 O2 Sat by Pulse Oximetry 99 O2 Sat by Pulse Oximetry 100 O2 Sat by Pulse Oximetry 100 O2 Sat by Pulse Oximetry 98 O2 Sat by Pulse Oximetry 98 ROR Labs Reviewed 05/15/24 21:40 05/15/24 21:40 Laboratory: WBC 4.8 X10^3/uL (3.6-10.0) 05/15/24 21:40 RBC 4.79 X10^6/uL (4.7-6.0) 05/15/24 21:40 Hgb 14.9 g/dL (13.5-18.0) 05/15/24 21:40 Hct 44.3 % (42.0-54.0) 05/15/24 21:40 MCV 92.6 fL (80.0-100.0) 05/15/24 21:40 MCH 31.1 pg (27.0-34.0) 05/15/24 21:40 MCHC 33.6 g/dL (33.0-35.0) 05/15/24 21:40 RDW 12.7 % (11.6-16.5) 05/15/24 21:40 Plt Count 269 X10^3/uL (150.0-450.0) 05/15/24 21:40 MPV 7.4 fL (7.4-11.0) 05/15/24 21:40 Neut % (Auto) 35.1 % (42.0-75.0) L 05/15/24 21:40 Lymph % (Auto) 43.6 % (21.0-51.0) 05/15/24 21:40 [place] % (Auto) 7.2 % (0.0-13.0) 05/15/24 21:40 Eos % (Auto) 12.9 % (0.9-2.9) H 05/15/24 21:40 Baso % (Auto) 1.2 % (0.2-1.0) H 05/15/24 21:40 Neut # (Auto) 1.7 x10^3/uL (2.2-4.8) L 05/15/24 21:40 Lymph # (Auto) 2.1 X10^3/uL (1.3-2.9) 05/15/24 21:40 [place] # (Auto) 0.3 x10^3/uL (0.3-0.8) 05/15/24 21:40 Eos # (Auto) 0.6 x10^3/uL (0.0-0.2) H 05/15/24 21:40 Baso # (Auto) 0.1 X10^3/uL (0.0-0.1) 05/15/24 21:40 Absolute Nucleated RBC 0.1 /100WBC 05/15/24 21:40 Sodium 145 mmol/L (136-145) 05/15/24 21:40 Corrected Sodium TNP 05/15/24 21:40 Potassium 4.1 mmol/L (3.5-5.1) 05/15/24 21:40 Chloride 107 mmol/L (98-107) 05/15/24 21:40 Carbon Dioxide 30.1 mmol/L (21-32) 05/15/24 21:40 BUN 7 mg/dL (7-18) 05/15/24 21:40 Creatinine 1.44 mg/dL (0.70-1.30) H 05/15/24 21:40 Est GFR (MDRD) Af Amer > 60 (>60) 05/15/24 21:40 Est GFR (MDRD) Non-Af 56 (>60) L 05/15/24 21:40 Glucose 97 mg/dL (65-99) 05/15/24 21:40 Calcium 8.4 mg/dL (8.5-10.1) L 05/15/24 21:40 Corrected Calcium TNP 05/15/24 21:40 Total Bilirubin 0.30 mg/dL (0.2-1.0) 05/15/24 21:40 AST 15 Units/L (15-37) 05/15/24 21:40 ALT 18 Units/L (12-78) 05/15/24 21:40 Alkaline Phosphatase 101 Units/L (46-116) 05/15/24 21:40 Total Protein 6.7 g/dL (6.4-8.2) 05/15/24 21:40 Albumin 3.4 g/dL (3.4-5.0) 05/15/24 21:40 Globulin 3.3 g/dL (2.5-4.5) 05/15/24 21:40 Albumin/Globulin Ratio 1.0 Ratio (1.1-2.1) L 05/15/24 21:40 Amylase 118 Units/L (25-115) H 05/15/24 21:40 Lipase 215 Units/L (16-77) H 05/15/24 21:40 Opioid Opioid Risk Tool Age (Rik box if 16-45): No History of Preadolescent Sexual Abuse: No Total: 0 Total Score Risk Category: Low Risk Copyright: Carlos Enrique WILKINS predicting aberrant behaviors Discharge Plan Discharge Plan Patient Disposition: 01 HOME, SELF-CARE Condition: Stable Orders to Discharge Patient Discharge Orders: Transfer (Routine); Ordered 05/16/24 Ordered By: RANDY BENÍTEZ
[2024-05-15] MEDS: DEMEROL INJ IVP ONE (21:55)
[2024-05-15] MEDS: NS 1,000 ML IV 1,000 ML IV ONE (21:56)
[2024-05-15] MEDS: ZOFRAN INJ 4 MG VIAL IVP ONE (21:56)
[2024-05-15 21:58] LABS: BASOPHILS # (AUTO) 0.1 X10^3/uL (0.0-0.1); BASOPHILS % (AUTO) 1.2 % (0.2-1.0); EOSINOPHILS # (AUTO) 0.6 x10^3/uL (0.0-0.2); EOSINOPHILS % (AUTO) 12.9 % (0.9-2.9); HEMATOCRIT 44.3 % (42.0-54.0); HEMOGLOBIN 14.9 g/dL (13.5-18.0); LYMPHOCYTES # (AUTO) 2.1 X10^3/uL (1.3-2.9); LYMPHOCYTES % (AUTO) 43.6 % (21.0-51.0); MEAN CORPUSCULAR HEMOGLOBIN 31.1 pg (27.0-34.0); MEAN CORPUSCULAR HGB CONC 33.6 g/dL (33.0-35.0); MEAN CORPUSCULAR VOLUME 92.6 fL (80.0-100.0); MEAN PLATELET VOLUME 7.4 fL (7.4-11.0); MONOCYTES # (AUTO) 0.3 x10^3/uL (0.3-0.8); MONOCYTES % (AUTO) 7.2 % (0.0-13.0); NEUTROPHILS # (AUTO) 1.7 x10^3/uL (2.2-4.8); NEUTROPHILS % (AUTO) 35.1 % (42.0-75.0); PLATELET COUNT 269 X10^3/uL (150.0-450.0); RED BLOOD COUNT 4.79 X10^6/uL (4.7-6.0); RED CELL DISTRIBUTION WIDTH 12.7 % (11.6-16.5); WHITE BLOOD COUNT 4.8 X10^3/uL (3.6-10.0)
[2024-05-15 22:13] LABS: ALANINE AMINOTRANSFERASE 18 Units/L (12-78); ALBUMIN 3.4 g/dL (3.4-5.0); ALKALINE PHOSPHATASE 101 Units/L (46-116); AMYLASE 118 Units/L (25-115); ASPARTATE AMINO TRANSFERASE 15 Units/L (15-37); BLOOD UREA NITROGEN 7 mg/dL (7-18); CALCIUM 8.4 mg/dL (8.5-10.1); CARBON DIOXIDE 30.1 mmol/L (21-32); CHLORIDE 107 mmol/L (98-107); CREATININE 1.44 mg/dL (0.70-1.30); GLUCOSE 97 mg/dL (65-99); LIPASE 215 Units/L (16-77); POTASSIUM 4.1 mmol/L (3.5-5.1); SODIUM 145 mmol/L (136-145); TOTAL PROTEIN 6.7 g/dL (6.4-8.2); eGFR NON BLACK RACES 56 (>60)
[2024-05-16] MEDS ORDERED: XYLOCAINE 2 % (PLAIN) ONE (00:38)
[2024-05-16] MEDS ORDERED: KETAMINE HCL ONE (00:38)
[2024-05-16] MEDS ORDERED: ULTANE GAS IN ONE (00:38)
[2024-05-16] MEDS ORDERED: ZOFRAN INJ 4 MG VIAL IVP PRN ×2 (00:50)
[2024-05-16] MEDS ORDERED: DEMEROL INJ IVP PRN (00:50)
[2024-05-16] MEDS: NS 1,000 ML IV 1,000 ML IV SCH (01:11)
[2024-05-16 01:18] LABS: BILIRUBIN,URINE NEGATIVE (NEGATIVE); BLOOD/HEMOGLOBIN,URINE NEGATIVE (NEGATIVE); GLUCOSE, URINE NEGATIVE (NEGATIVE); KETONES,URINE NEGATIVE (NEGATIVE); LEUKOCYTE ESTERASE ,URINE NEGATIVE (NEGATIVE); NITRITES,URINE NEGATIVE (NEGATIVE); PROTEIN,URINE NEGATIVE (NEGATIVE); UROBILINOGEN,URINE NORMAL (NORMAL)
[2024-05-16 01:20] LABS: APPEARANCE,URINE CLEAR (CLEAR); COLOR,URINE STRAW (YELLOW)
[2024-05-16 01:23] VITALS: BMI 33.3
[2024-05-16 05:37] LABS: BASOPHILS # (AUTO) 0.1 X10^3/uL (0.0-0.1); BASOPHILS % (AUTO) 1.2 % (0.2-1.0); EOSINOPHILS # (AUTO) 0.5 x10^3/uL (0.0-0.2); EOSINOPHILS % (AUTO) 6.9 % (0.9-2.9); HEMATOCRIT 43.6 % (42.0-54.0); HEMOGLOBIN 14.5 g/dL (13.5-18.0); LYMPHOCYTES % (AUTO) 28.6 % (21.0-51.0); MEAN CORPUSCULAR HEMOGLOBIN 30.5 pg (27.0-34.0); MEAN CORPUSCULAR HGB CONC 33.3 g/dL (33.0-35.0); MEAN CORPUSCULAR VOLUME 91.5 fL (80.0-100.0); MEAN PLATELET VOLUME 7.4 fL (7.4-11.0); MONOCYTES # (AUTO) 0.3 x10^3/uL (0.3-0.8); MONOCYTES % (AUTO) 4.5 % (0.0-13.0); NEUTROPHILS # (AUTO) 4.1 x10^3/uL (2.2-4.8); NEUTROPHILS % (AUTO) 58.8 % (42.0-75.0); PLATELET COUNT 269 X10^3/uL (150.0-450.0); RED BLOOD COUNT 4.77 X10^6/uL (4.7-6.0)
[2024-05-16 05:53] LABS: ALANINE AMINOTRANSFERASE 17 Units/L (12-78); ALBUMIN 3.1 g/dL (3.4-5.0); ALKALINE PHOSPHATASE 78 Units/L (46-116); AMYLASE 102 Units/L (25-115); ASPARTATE AMINO TRANSFERASE 15 Units/L (15-37); BLOOD UREA NITROGEN 6 mg/dL (7-18); CALCIUM 8.4 mg/dL (8.5-10.1); CARBON DIOXIDE 29.5 mmol/L (21-32); CHLORIDE 109 mmol/L (98-107); COR CA(FOR HYPOALB) 9.1 mg/dL (8.5-10.1); GLUCOSE 89 mg/dL (65-99); LIPASE 102 Units/L (16-77); POTASSIUM 4.2 mmol/L (3.5-5.1); SODIUM 144 mmol/L (136-145); TOTAL PROTEIN 6.3 g/dL (6.4-8.2); eGFR NON BLACK RACES > 60 (>60)
[2024-05-16] MEDS: APRESOLINE INJ 20 MG VIAL ONE (06:58)
--- NOTE | 2024-05-16 11:06 | EKG ---
Test Reason : PREOP CLEARANCE Blood Pressure : */* mmHG Vent. Rate : 54 BPM Atrial Rate : 54 BPM P-R Int : 208 ms QRS Dur : 90 ms QT Int : 422 ms P-R-T Axes : 43 54 -48 degrees QTc Int : 400 ms Sinus bradycardia Anterior infarct , age undetermined Nonspecific T wave abnormality Abnormal ECG When compared with ECG of 26-JAN-2024 13:01, Anterior infarct is now present Nonspecific T wave abnormality now evident in Lateral leads Confirmed by Andrea Price MD ([id number]) on 05/16/2024 11:10:02 AM Referred By: Confirmed By: Andrea Price MD
--- NOTE | 2024-05-16 14:30 | RAD ---
EXAM:CHEST, 1 VIEWHISTORY:PRE-OP CLEARANCE;COMPARISON:Prior study or studies were utilized for comparison during interpretation with the most relevant dated 01/26/2020TECHNIQUE:CHEST, 1 VIEWFINDINGS:Chest:Lines and tubes: Cardiac leads overlie the chest.Mediastinum: Borderline cardiomegaly.Pulmonary vessels: No pulmonary vascular congestion.Lung chakraborty: No suspicious airspace opacity.Pleura: No effusion. No pneumothorax.Bones and soft tissues: No acute osseous or soft tissue abnormality.IMPRESSION:1. No acute cardiopulmonary abnormalityTHIS IS AN ELECTRONICALLY VERIFIED FINAL RAKYMY3805/16/2024 2:27 PM - Electronically signed by Moe Yoder MD
--- NOTE | 2024-05-16 14:50 | DR.H&P ---
H&P History & Physical for Day of: H&P Date: 05/16/24 Chief Complaint Chief Complaint: "I've been having some pain up here around the gallbladder and right upper quadrant. It started yesterday." History of Present Illness History of Present Illness: Fritz RushingJrMackenzie is a patient who was admitted on 05-16-2024 for inpatient observation. He is experiencing right upper quadrant pain that began earlier in the day. The patient reports having had similar pain in the past and is concerned about his current situation. Fritz denies shortness of breath, chest pain, itching, nausea, and rashes. He has not received any treatments specific to this pain as of the visit. He also indicated that he does not have any other medical problems or take any regular medications. His current illness has impacted his ability to eat comfortably, and he was advised to adhere to a low-fat meal today. Past Medical History Additional Medical History: Past medical history: none noted. Family history positive for diabetes mellitus type 2, common cancer, coronary artery disease, history of myocardial infarction, and hypertension. Past Surgical History Surgical History: Appendectomy Family History Family Medical History: Diabetes Mellitus, Cancer, [place] and Hypertension Social History Does patient currently use any type of tobacco product: Yes Have you used tobacco products in the last 12 months: Yes Type of Tobacco Use: Cigarettes Does any household member use tobacco: No Alcohol Use: None Drug Use: Marijuana Medications Home Medications: Home Medications Medication Instructions Recorded Confirmed Type NK 01/24/24 05/15/24 History Allergies Allergies Allergy/AdvReac Type Severity Reaction Status Date / Time iodine Allergy Verified 05/15/24 21:29 SEAFOOD Allergy Verified 05/15/24 21:29 Labs 05/16/24 05:08 05/16/24 05:08 Labs: Laboratory WBC 7.0 X10^3/uL (3.6-10.0) 05/16/24 05:08 RBC 4.77 X10^6/uL (4.7-6.0) 05/16/24 05:08 Hgb 14.5 g/dL (13.5-18.0) 05/16/24 05:08 Hct 43.6 % (42.0-54.0) 05/16/24 05:08 MCV 91.5 fL (80.0-100.0) 05/16/24 05:08 MCH 30.5 pg (27.0-34.0) 05/16/24 05:08 MCHC 33.3 g/dL (33.0-35.0) 05/16/24 05:08 RDW 13.0 % (11.6-16.5) 05/16/24 05:08 Plt Count 269 X10^3/uL (150.0-450.0) 05/16/24 05:08 MPV 7.4 fL (7.4-11.0) 05/16/24 05:08 Neut % (Auto) 58.8 % (42.0-75.0) 05/16/24 05:08 Lymph % (Auto) 28.6 % (21.0-51.0) 05/16/24 05:08 [place] % (Auto) 4.5 % (0.0-13.0) 05/16/24 05:08 Eos % (Auto) 6.9 % (0.9-2.9) H 05/16/24 05:08 Baso % (Auto) 1.2 % (0.2-1.0) H 05/16/24 05:08 Neut # (Auto) 4.1 x10^3/uL (2.2-4.8) 05/16/24 05:08 Lymph # (Auto) 2.0 X10^3/uL (1.3-2.9) 05/16/24 05:08 [place] # (Auto) 0.3 x10^3/uL (0.3-0.8) 05/16/24 05:08 Eos # (Auto) 0.5 x10^3/uL (0.0-0.2) H 05/16/24 05:08 Baso # (Auto) 0.1 X10^3/uL (0.0-0.1) 05/16/24 05:08 Absolute Nucleated RBC 0.1 /100WBC 05/16/24 05:08 Sodium 144 mmol/L (136-145) 05/16/24 05:08 Corrected Sodium TNP 05/16/24 05:08 Potassium 4.2 mmol/L (3.5-5.1) 05/16/24 05:08 Chloride 109 mmol/L (98-107) H 05/16/24 05:08 Carbon Dioxide 29.5 mmol/L (21-32) 05/16/24 05:08 BUN 6 mg/dL (7-18) L 05/16/24 05:08 Creatinine 1.10 mg/dL (0.70-1.30) 05/16/24 05:08 Est GFR (MDRD) Af Amer > 60 (>60) 05/16/24 05:08 Est GFR (MDRD) Non-Af > 60 (>60) 05/16/24 05:08 Glucose 89 mg/dL (65-99) 05/16/24 05:08 Calcium 8.4 mg/dL (8.5-10.1) L 05/16/24 05:08 Corrected Calcium 9.1 mg/dL (8.5-10.1) 05/16/24 05:08 Total Bilirubin 0.30 mg/dL (0.2-1.0) 05/16/24 05:08 AST 15 Units/L (15-37) 05/16/24 05:08 ALT 17 Units/L (12-78) 05/16/24 05:08 Alkaline Phosphatase 78 Units/L (46-116) 05/16/24 05:08 Total Protein 6.3 g/dL (6.4-8.2) L 05/16/24 05:08 Albumin 3.1 g/dL (3.4-5.0) L 05/16/24 05:08 Globulin 3.2 g/dL (2.5-4.5) 05/16/24 05:08 Albumin/Globulin Ratio 1.0 Ratio (1.1-2.1) L 05/16/24 05:08 Amylase 102 Units/L (25-115) 05/16/24 05:08 Lipase 102 Units/L (16-77) H 05/16/24 05:08 Specimen Type Clean catch urine 05/16/24 00:46 Urine Color Straw (YELLOW) 05/16/24 00:46 Urine Appearance Clear (CLEAR) 05/16/24 00:46 Urine pH 6.0 (5.0 - 8.0) 05/16/24 00:46 Ur Specific [place] 1.015 (1.000-1.030) 05/16/24 00:46 Urine Protein Negative (NEGATIVE) 05/16/24 00:46 Urine Glucose (UA) Negative (NEGATIVE) 05/16/24 00:46 Urine Ketones Negative (NEGATIVE) 05/16/24 00:46 Urine Blood Negative (NEGATIVE) 05/16/24 00:46 Urine Nitrite Negative (NEGATIVE) 05/16/24 00:46 Urine Bilirubin Negative (NEGATIVE) 05/16/24 00:46 Urine Urobilinogen Normal (NORMAL) 05/16/24 00:46 Ur Leukocyte Esterase Negative (NEGATIVE) 05/16/24 00:46 Review of Systems Constitutional: No Symptoms Reported Eyes: No Symptoms Reported ENT: No Symptoms Reported Respiratory: No Symptoms Reported Cardiovascular: No Symptoms Reported Gastrointestinal: Abdominal Pain Genitourinary: No Symptoms Reported Musculoskeletal: No Symptoms Reported Skin: No Symptoms Reported Neurological: No Symptoms Reported Physical Exam Vital Signs: Vital Signs Temperature 98 F Temperature 98.1 F Pulse Rate [Left Radial] 71 Pulse Rate [Left Radial] 69 Respiratory Rate 20 Respiratory Rate 21 Blood Pressure [Right Arm] 133/77 Blood Pressure [Right Arm] 139/82 O2 Sat by Pulse Oximetry 97 O2 Sat by Pulse Oximetry 97 Oriented: Normal, Time, Person and Place Eyes: Normal Ear: Normal Nose: Normal Throat: Normal Respiratory: Clear Throughout Cardiovascular: Normal Auscultation: Bowel Sounds: Normal Palpation: Normal Tenderness: Normal Skin: Normal Musculoskeletal: Normal Psychiatric: Normal Mood Description: Calm Affect: Normal Speech Pattern: Clear and Appropriate Assessment/Plan (1) Right upper quadrant pain: Status: Acute (2) Cholelithiasis: Qualifiers: Cholelithiasis location: gallbladder Cholecystitis acuity: chronic Status: Acute Plan: The primary issue is right upper quadrant pain with a potential differential diagnosis that may include pancreatitis or gallbladder disease, given the pain and the lab findings of elevated lipase and amylase. A consult with Dr. Hart has been recommended. The patient will be monitored for signs of sepsis due to positive blood cultures. Recommended management includes hydration and potential further imaging or tests to evaluate the gallbladder and pancreas. The patient is advised to try a low-fat meal and to report any worsening of symptoms. Review H&P Reviewed: Yes Patient was examined?: Yes
[2024-05-17] MEDS: HIBICLENS WASH EXT ONE (00:10)
[2024-05-17 05:18] LABS: BASOPHILS % (AUTO) 0.9 % (0.2-1.0); EOSINOPHILS # (AUTO) 0.7 x10^3/uL (0.0-0.2); EOSINOPHILS % (AUTO) 14.3 % (0.9-2.9); HEMOGLOBIN 14.8 g/dL (13.5-18.0); LYMPHOCYTES # (AUTO) 1.9 X10^3/uL (1.3-2.9); LYMPHOCYTES % (AUTO) 38.3 % (21.0-51.0); MEAN CORPUSCULAR HEMOGLOBIN 30.6 pg (27.0-34.0); MEAN CORPUSCULAR HGB CONC 33.5 g/dL (33.0-35.0); MEAN CORPUSCULAR VOLUME 91.4 fL (80.0-100.0); MEAN PLATELET VOLUME 7.3 fL (7.4-11.0); MONOCYTES # (AUTO) 0.3 x10^3/uL (0.3-0.8); MONOCYTES % (AUTO) 7.1 % (0.0-13.0); NEUTROPHILS # (AUTO) 1.9 x10^3/uL (2.2-4.8); NEUTROPHILS % (AUTO) 39.4 % (42.0-75.0); PLATELET COUNT 274 X10^3/uL (150.0-450.0); RED BLOOD COUNT 4.82 X10^6/uL (4.7-6.0); WHITE BLOOD COUNT 4.9 X10^3/uL (3.6-10.0)
[2024-05-17 05:34] LABS: ALANINE AMINOTRANSFERASE 18 Units/L (12-78); ALBUMIN 3.3 g/dL (3.4-5.0); ALKALINE PHOSPHATASE 82 Units/L (46-116); ASPARTATE AMINO TRANSFERASE 17 Units/L (15-37); BLOOD UREA NITROGEN 6 mg/dL (7-18); CALCIUM 8.6 mg/dL (8.5-10.1); CARBON DIOXIDE 30.1 mmol/L (21-32); CHLORIDE 109 mmol/L (98-107); COR CA(FOR HYPOALB) 9.2 mg/dL (8.5-10.1); CREATININE 1.04 mg/dL (0.70-1.30); GLUCOSE 87 mg/dL (65-99); SODIUM 145 mmol/L (136-145); TOTAL PROTEIN 6.6 g/dL (6.4-8.2); eGFR NON BLACK RACES > 60 (>60)
[2024-05-17] MEDS: LR 1,000 ML IV 1,000 ML IV ONE (09:59)
[2024-05-17] MEDS: NS 100 ML IV 100 ML ONE (09:59)
[2024-05-17] MEDS: ANCEF VIAL 1 GRAM ONE (09:59)
--- NOTE | 2024-05-17 10:04 | PCM.PROG ---
Progress Note Progress Note for Day of Date of Exam: 05/17/24 Subjective Subjective: Mr. Rushing reported eating something yesterday. Upon palpation of his abdomen, he indicated he was still experiencing pain in a specific area. This pain appears to be related to his gallbladder issues. The patient expressed a desire to be well before going home and acknowledged that hospital stays can become tedious after a day or two due to frequent interruptions at all hours. Past Medical Family Social History Allergies: Allergies iodine Allergy (Verified 05/15/24 21:29) SEAFOOD Allergy (Verified 05/15/24 21:29) Review of Systems ROS: No change since H&P Vital Signs and I&O's Vital Signs: Vital Signs Temperature 99.4 F Temperature 98.3 F Pulse Rate [Left Radial] 53 Pulse Rate [Left Radial] 54 Respiratory Rate 19 Respiratory Rate 16 Blood Pressure [Right Arm] 125/68 Blood Pressure [Right Arm] 124/76 O2 Sat by Pulse Oximetry 98 O2 Sat by Pulse Oximetry 96 Intake and Output: Intake & Output 05/14/24 05/15/24 05/16/24 05/17/24 11:59 11:59 11:59 11:59 Intake Total 380 / 380 2831 / 2831 Output Total 400 / 400 2975 / 2975 Balance -20 / -20 -144 / -144 Physical Exam Oriented: Normal, Time, Person and Place Eyes: Normal Ear: Normal Nose: Normal Throat: Normal Respiratory: Normal Cardiovascular: Normal Auscultation: Bowel Sounds: Normal Tenderness: Normal Skin: Normal Musculoskeletal: Normal Psychiatric: Normal Mood Description: Calm Affect: Normal Speech Pattern: Clear Laboratory and Diagnostics 05/17/24 05:02 05/17/24 05:02 Labs: Laboratory WBC 4.9 X10^3/uL (3.6-10.0) 05/17/24 05:02 RBC 4.82 X10^6/uL (4.7-6.0) 05/17/24 05:02 Hgb 14.8 g/dL (13.5-18.0) 05/17/24 05:02 Hct 44.0 % (42.0-54.0) 05/17/24 05:02 MCV 91.4 fL (80.0-100.0) 05/17/24 05:02 MCH 30.6 pg (27.0-34.0) 05/17/24 05:02 MCHC 33.5 g/dL (33.0-35.0) 05/17/24 05:02 RDW 13.0 % (11.6-16.5) 05/17/24 05:02 Plt Count 274 X10^3/uL (150.0-450.0) 05/17/24 05:02 MPV 7.3 fL (7.4-11.0) L 05/17/24 05:02 Neut % (Auto) 39.4 % (42.0-75.0) L 05/17/24 05:02 Lymph % (Auto) 38.3 % (21.0-51.0) 05/17/24 05:02 [place] % (Auto) 7.1 % (0.0-13.0) 05/17/24 05:02 Eos % (Auto) 14.3 % (0.9-2.9) H 05/17/24 05:02 Baso % (Auto) 0.9 % (0.2-1.0) 05/17/24 05:02 Neut # (Auto) 1.9 x10^3/uL (2.2-4.8) L 05/17/24 05:02 Lymph # (Auto) 1.9 X10^3/uL (1.3-2.9) 05/17/24 05:02 [place] # (Auto) 0.3 x10^3/uL (0.3-0.8) 05/17/24 05:02 Eos # (Auto) 0.7 x10^3/uL (0.0-0.2) H 05/17/24 05:02 Baso # (Auto) 0.0 X10^3/uL (0.0-0.1) 05/17/24 05:02 Absolute Nucleated RBC 0.0 /100WBC 05/17/24 05:02 Sodium 145 mmol/L (136-145) 05/17/24 05:02 Corrected Sodium TNP 05/17/24 05:02 Potassium 4.0 mmol/L (3.5-5.1) 05/17/24 05:02 Chloride 109 mmol/L (98-107) H 05/17/24 05:02 Carbon Dioxide 30.1 mmol/L (21-32) 05/17/24 05:02 BUN 6 mg/dL (7-18) L 05/17/24 05:02 Creatinine 1.04 mg/dL (0.70-1.30) 05/17/24 05:02 Est GFR (MDRD) Af Amer > 60 (>60) 05/17/24 05:02 Est GFR (MDRD) Non-Af > 60 (>60) 05/17/24 05:02 Glucose 87 mg/dL (65-99) 05/17/24 05:02 Calcium 8.6 mg/dL (8.5-10.1) 05/17/24 05:02 Corrected Calcium 9.2 mg/dL (8.5-10.1) 05/17/24 05:02 Total Bilirubin 0.30 mg/dL (0.2-1.0) 05/17/24 05:02 AST 17 Units/L (15-37) 05/17/24 05:02 ALT 18 Units/L (12-78) 05/17/24 05:02 Alkaline Phosphatase 82 Units/L (46-116) 05/17/24 05:02 Total Protein 6.6 g/dL (6.4-8.2) 05/17/24 05:02 Albumin 3.3 g/dL (3.4-5.0) L 05/17/24 05:02 Globulin 3.3 g/dL (2.5-4.5) 05/17/24 05:02 Albumin/Globulin Ratio 1.0 Ratio (1.1-2.1) L 05/17/24 05:02 Amylase 102 Units/L (25-115) 05/16/24 05:08 Lipase 102 Units/L (16-77) H 05/16/24 05:08 Specimen Type Clean catch urine 05/16/24 00:46 Urine Color Straw (YELLOW) 05/16/24 00:46 Urine Appearance Clear (CLEAR) 05/16/24 00:46 Urine pH 6.0 (5.0 - 8.0) 05/16/24 00:46 Ur Specific [place] 1.015 (1.000-1.030) 05/16/24 00:46 Urine Protein Negative (NEGATIVE) 05/16/24 00:46 Urine Glucose (UA) Negative (NEGATIVE) 05/16/24 00:46 Urine Ketones Negative (NEGATIVE) 05/16/24 00:46 Urine Blood Negative (NEGATIVE) 05/16/24 00:46 Urine Nitrite Negative (NEGATIVE) 05/16/24 00:46 Urine Bilirubin Negative (NEGATIVE) 05/16/24 00:46 Urine Urobilinogen Normal (NORMAL) 05/16/24 00:46 Ur Leukocyte Esterase Negative (NEGATIVE) 05/16/24 00:46 Plan (1) Right upper quadrant pain: Status: Acute (2) Cholelithiasis: Status: Acute Qualifiers: Cholelithiasis location: gallbladder Cholecystitis acuity: chronic Plan: General surgeon, Dr. Romero plans to proceed with gallbladder removal surgery for Mr. Rushing later today. After the surgery and healing period, I expect he will no longer experience the pain he's been having. Dr. Romero will likely discharge Mr. Rushing later today.
[2024-05-17] MEDS: OFIRMEV IV 1000 MG VIAL 1,000 MG/100 ML VIAL IV ONE (10:12)
[2024-05-17] MEDS: REGLAN INJ 10 MG VIAL ONE (10:12)
[2024-05-17] MEDS: ROBINUL ONE (10:12)
[2024-05-17] MEDS: DECADRON INJ ONE (10:12)
[2024-05-17] MEDS: BRIDION ONE (10:12)
[2024-05-17] MEDS: ZOFRAN INJ 4 MG VIAL ONE (10:12)
[2024-05-17] MEDS: VERSED ONE (10:12)
[2024-05-17] MEDS: FENTANYL VIAL INJ 100 mcg ONE (10:12)
[2024-05-17] MEDS: PEPCID 20 MG VIAL ONE (10:12)
[2024-05-17] MEDS: DIPRIVAN VIAL 20 ML ONE (10:12)
[2024-05-17] MEDS: BACTROBAN TOPICAL OINT ONE (10:29)
[2024-05-17] MEDS: NS 1,000 ML IV 1,000 ML ONE (10:29)
[2024-05-17] MEDS: TORADOL 30 MG VIAL ONE (10:33)
[2024-05-17] MEDS: EPHEDRINE SULFATE INJ ONE (10:43)
[2024-05-17] MEDS ORDERED: DILAUDID INJ ONE (11:01)
[2024-05-17] MEDS ORDERED: ZOFRAN INJ 4 MG VIAL IVP PRN (11:20)
[2024-05-17] MEDS ORDERED: BENADRYL INJ 50 MG VIAL IVP PRN (11:20)
[2024-05-17] MEDS ORDERED: DILAUDID INJ IVP PRN ×2 (11:20→12:06)
[2024-05-17] MEDS ORDERED: TYLENOL 325 MG TAB PO PRN (18:20)
[2024-05-18 01:11] VITALS: RESP 18
[2024-05-18 06:31] LABS: BASOPHILS # (AUTO) 0.1 X10^3/uL (0.0-0.1); BASOPHILS % (AUTO) 0.5 % (0.2-1.0); EOSINOPHILS % (AUTO) 0.4 % (0.9-2.9); HEMATOCRIT 43.5 % (42.0-54.0); HEMOGLOBIN 14.6 g/dL (13.5-18.0); LYMPHOCYTES # (AUTO) 1.4 X10^3/uL (1.3-2.9); MEAN CORPUSCULAR HEMOGLOBIN 30.7 pg (27.0-34.0); MEAN CORPUSCULAR HGB CONC 33.7 g/dL (33.0-35.0); MEAN CORPUSCULAR VOLUME 91.2 fL (80.0-100.0); MEAN PLATELET VOLUME 7.9 fL (7.4-11.0); MONOCYTES # (AUTO) 0.5 x10^3/uL (0.3-0.8); NEUTROPHILS # (AUTO) 8.2 x10^3/uL (2.2-4.8); NEUTROPHILS % (AUTO) 80.1 % (42.0-75.0); PLATELET COUNT 279 X10^3/uL (150.0-450.0); RED BLOOD COUNT 4.77 X10^6/uL (4.7-6.0); RED CELL DISTRIBUTION WIDTH 12.8 % (11.6-16.5); WHITE BLOOD COUNT 10.2 X10^3/uL (3.6-10.0)
[2024-05-18 06:53] LABS: ALANINE AMINOTRANSFERASE 20 Units/L (12-78); ALBUMIN 3.1 g/dL (3.4-5.0); ALKALINE PHOSPHATASE 82 Units/L (46-116); ASPARTATE AMINO TRANSFERASE 23 Units/L (15-37); BLOOD UREA NITROGEN 8 mg/dL (7-18); CALCIUM 8.8 mg/dL (8.5-10.1); CHLORIDE 106 mmol/L (98-107); COR CA(FOR HYPOALB) 9.5 mg/dL (8.5-10.1); COR NA(FOR HYPERGLY) 142 mmol/L (136-145); CREATININE 1.05 mg/dL (0.70-1.30); GLUCOSE 121 mg/dL (65-99); SODIUM 141 mmol/L (136-145); TOTAL PROTEIN 6.6 g/dL (6.4-8.2); eGFR NON BLACK RACES > 60 (>60)
[2024-05-18 13:48] VITALS: BP 133/59; PULSE 69; TEMP 97.7; O2SAT 97
--- NOTE | 2024-05-20 22:09 | PCM.DCPLAN ---
DISCHARGE SUMMARY Admission Date Date of Admission: 05/16/24 Discharge Date Discharge Date: 05/18/24 Admission Diagnoses (1) Right upper quadrant pain: Status: Acute (2) Cholelithiasis: Status: Acute Discharge Diagnoses Discharge Diagnosis: 1. Right upper quadrant pain secondary to cholelithiasis 2. Acute cholecystitis with large distended gallbladder with large stone impacted in the neck of the gallbladder. 3. Dense adhesions covering the gallbladder. 4. Status-post lysis of adhesions around gallbladder 5. Statuspost cholecystectomy for acute cholecystitis ICD-10 Codes R10.11Right upper quadrant pain Discharge Medications Discharge Medications: Home Medication List ciprofloxacin HCl 500 mg tablet (Cipro) 500 mg PO Q12H #14 tabs 05/18/24 [Rx] hydrocodone 5 mg-acetaminophen 325 mg tablet 1 tab PO Q4H PRN Pain #20 tabs 05/18/24 [Rx] Prescriptions: ciprofloxacin HCl [Cipro] [facility] hydrocodone-acetaminophen [facility] Hospital Course Latest Lab Results: Laboratory Last Values WBC 10.2 X10^3/uL (3.6-10.0) H 05/18/24 05:38 RBC 4.77 X10^6/uL (4.7-6.0) 05/18/24 05:38 Hgb 14.6 g/dL (13.5-18.0) 05/18/24 05:38 Hct 43.5 % (42.0-54.0) 05/18/24 05:38 MCV 91.2 fL (80.0-100.0) 05/18/24 05:38 MCH 30.7 pg (27.0-34.0) 05/18/24 05:38 MCHC 33.7 g/dL (33.0-35.0) 05/18/24 05:38 RDW 12.8 % (11.6-16.5) 05/18/24 05:38 Plt Count 279 X10^3/uL (150.0-450.0) 05/18/24 05:38 MPV 7.9 fL (7.4-11.0) 05/18/24 05:38 Neut % (Auto) 80.1 % (42.0-75.0) H 05/18/24 05:38 Lymph % (Auto) 14.0 % (21.0-51.0) L 05/18/24 05:38 [place] % (Auto) 5.0 % (0.0-13.0) 05/18/24 05:38 Eos % (Auto) 0.4 % (0.9-2.9) L 05/18/24 05:38 Baso % (Auto) 0.5 % (0.2-1.0) 05/18/24 05:38 Neut # (Auto) 8.2 x10^3/uL (2.2-4.8) H 05/18/24 05:38 Lymph # (Auto) 1.4 X10^3/uL (1.3-2.9) 05/18/24 05:38 [place] # (Auto) 0.5 x10^3/uL (0.3-0.8) 05/18/24 05:38 Eos # (Auto) 0.0 x10^3/uL (0.0-0.2) 05/18/24 05:38 Baso # (Auto) 0.1 X10^3/uL (0.0-0.1) 05/18/24 05:38 Absolute Nucleated RBC 0.0 /100WBC 05/18/24 05:38 Sodium 141 mmol/L (136-145) 05/18/24 05:38 Corrected Sodium 142 mmol/L (136-145) 05/18/24 05:38 Potassium 4.0 mmol/L (3.5-5.1) 05/18/24 05:38 Chloride 106 mmol/L (98-107) 05/18/24 05:38 Carbon Dioxide 28.0 mmol/L (21-32) 05/18/24 05:38 BUN 8 mg/dL (7-18) 05/18/24 05:38 Creatinine 1.05 mg/dL (0.70-1.30) 05/18/24 05:38 Est GFR (MDRD) Af Amer > 60 (>60) 05/18/24 05:38 Est GFR (MDRD) Non-Af > 60 (>60) 05/18/24 05:38 Glucose 121 mg/dL (65-99) H 05/18/24 05:38 Calcium 8.8 mg/dL (8.5-10.1) 05/18/24 05:38 Corrected Calcium 9.5 mg/dL (8.5-10.1) 05/18/24 05:38 Total Bilirubin 0.20 mg/dL (0.2-1.0) 05/18/24 05:38 AST 23 Units/L (15-37) 05/18/24 05:38 ALT 20 Units/L (12-78) 05/18/24 05:38 Alkaline Phosphatase 82 Units/L (46-116) 05/18/24 05:38 Total Protein 6.6 g/dL (6.4-8.2) 05/18/24 05:38 Albumin 3.1 g/dL (3.4-5.0) L 05/18/24 05:38 Globulin 3.5 g/dL (2.5-4.5) 05/18/24 05:38 Albumin/Globulin Ratio 0.9 Ratio (1.1-2.1) L 05/18/24 05:38 Amylase 102 Units/L (25-115) 05/16/24 05:08 Lipase 102 Units/L (16-77) H 05/16/24 05:08 Specimen Type Clean catch urine 05/16/24 00:46 Urine Color Straw (YELLOW) 05/16/24 00:46 Urine Appearance Clear (CLEAR) 05/16/24 00:46 Urine pH 6.0 (5.0 - 8.0) 05/16/24 00:46 Ur Specific [place] 1.015 (1.000-1.030) 05/16/24 00:46 Urine Protein Negative (NEGATIVE) 05/16/24 00:46 Urine Glucose (UA) Negative (NEGATIVE) 05/16/24 00:46 Urine Ketones Negative (NEGATIVE) 05/16/24 00:46 Urine Blood Negative (NEGATIVE) 05/16/24 00:46 Urine Nitrite Negative (NEGATIVE) 05/16/24 00:46 Urine Bilirubin Negative (NEGATIVE) 05/16/24 00:46 Urine Urobilinogen Normal (NORMAL) 05/16/24 00:46 Ur Leukocyte Esterase Negative (NEGATIVE) 05/16/24 00:46 Hospital Course: 16 May 2024first day of hospitalization Fritz Rushing Jr. is a patient who was admitted on 05-16-2024 for inpatient observation. He is experiencing right upper quadrant pain that began earlier in the day. The patient reports having had similar pain in the past and is concerned about his current situation. Fritz denies shortness of breath, chest pain, itching, nausea, and rashes. He has not received any treatments specific to this pain as of the visit. He also indicated that he does not have any other medical problems or take any regular medications. His current illness has impacted his ability to eat comfortably, and he was advised to adhere to a low- fat meal today. Wednesday, 17 May day hospitalization Mr. Rushing reported eating something yesterday. Upon palpation of his abdomen, he indicated he was still experiencing pain in a specific area. This pain appears to be related to his gallbladder issues. The patient expressed a desire to be well before going home and acknowledged that hospital stays can become tedious after a day or two due to frequent interruptions at all hours. I plan to proceed with gallbladder removal surgery for Mr. Rushing. After the surgery and healing period, I expect he will no longer experience the pain he's been having. Dr. Leal will likely discharge Mr. Rushing later today. The patient will need to stay in the hospital for a couple of days post-surgery for observation and recovery. , April day hospitalization Vital signs are stable this morning. Mr. Rushing reports feeling a little better. He still has some pain, which he describes as "like a brunt." He has eaten all of his breakfast and tolerated it well. There is no nausea, vomiting, or abdominal pain reported. Mr. Rushing appears to have a good appetite and is looking forward to eating Thanksgiving foods. I am prescribing Cipro 500 mg BID for [address] Stockton will discharge Mr. Rushing this morning. I have scheduled a follow-up appointment with Dr. Stockton on May 30, which is in 2 weeks.
== END 2024-05-18 13:30 | disposition home or self-care (01) ==
LOC: ER 21:19 → MED/SURG 21:19
PROVIDERS: ADMIT Family Medicine; ATTEND Family Medicine
DX: K66.0 Peritoneal adhesions (postprocedural) (postinfection); K82.8 Other specified diseases of gallbladder; Z72.0 Tobacco use; R94.31 Abnormal electrocardiogram [ECG] [EKG]; Z01.810 Encounter for preprocedural cardiovascular examination; K80.12 Calculus of gallbladder with acute and chronic cholecystitis without obstruction; R10.13 Epigastric pain

== ENCOUNTER 2025-05-27 23:19 | Observation (INO) ==
[2025-05-27 23:28] VITALS: BMI 28.8
--- NOTE | 2025-05-27 23:44 | EKG ---
Test Reason : sob Blood Pressure : */* mmHG Vent. Rate : 98 BPM Atrial Rate : 98 BPM P-R Int : 154 ms QRS Dur : 80 ms QT Int : 326 ms P-R-T Axes : 76 81 68 degrees QTc Int : 416 ms Sinus rhythm with occasional premature ventricular complexes Otherwise normal ECG When compared with ECG of 16-MAY-2024 10:50, premature ventricular complexes are now present Vent. rate has increased BY 44 BPM Criteria for Anterior infarct are no longer present ST elevation now present in Inferior leads Nonspecific T wave abnormality no longer evident in Inferior leads Confirmed by Andrea Price MD ([id number]) on 05/28/2025 7:50:52 AM Referred By: Confirmed By: Andrea Price MD
[2025-05-27 23:49] LABS: MEAN PLATELET VOLUME 7.4 fL (7.4-11.0); RED CELL DISTRIBUTION WIDTH 13.4 % (11.6-16.5)
[2025-05-27 23:59] LABS: CREATININE 1.06 mg/dL (0.70-1.30); eGFR NON BLACK RACES > 60 (>60)
--- NOTE | 2025-05-28 00:29 | DR.SOBA ---
HPI Time Seen Time Seen by Provider: 05/27/25 23:25 Primary Care Physician Primary Care Physician: NFD Complaints Chief Complaint Doctors Comments: 49-year-old male to ED from home POV with shortness of breath history of PE Chief Complaint:: Patient ambulatory in triage with c/o "can't breathe". Patient screaming stating "I need to see a doctor, don't ask me any questions until I see a doctor". Patient refuses to answer any questions at this time. Self Treatment fo Chief Complaint: Unknown COVID-19 Coronavirus risk:travel/contact w/high risk person: No Has patient experienced Coronavirus symptoms: Yes Coronavirus symptoms experienced: Shortness of Breath Source History Provided: Patient Mode of Arrival Mode of Arrival: Ambulatory Timing Onset of Chief Complaint: 05/27/25 PMH PMH Past Medical History: Yes Past Medical History Comment: PE Past Surgical History: Yes Surgical History: Appendectomy and Cholecystectomy Family History History of Family Medical Conditions: Yes Family Medical History: Diabetes Mellitus, Cancer, Coronary Artery Disease and Hypertension Social History Does patient currently use any type of tobacco product: Yes Have you used tobacco products in the last 12 months: Yes Type of Tobacco Use: Cigarettes Does any household member use tobacco: Yes Alcohol Use: None Do you use any recreational Drugs:: Yes (Marijuana) Lives With: Family Lives Where: Home Travel Risk Coronavirus risk:travel/contact w/high risk person: No Has patient experienced Coronavirus symptoms: Yes Coronavirus symptoms experienced: Shortness of Breath Infectious screening In the last 2 months have you had wt loss of >10#?: NO Have you had fever, night sweats or hemotysis?: No Have you traveled outside the country in the last 6 months?: No Isolation: Standard ROS Review of Systems Constitutional: No Symptoms Reported Eyes: No Symptoms Reported ENTM: No Symptoms Reported Respiratoy: See HPI and Short of Breath Cardiovascular: No Symptoms Reported Gastrointestinal/Abdominal: No Symptoms Reported Genitourinary: No Symptoms Reported Neurological: No Symptoms Reported Musculoskeletal: No Symptoms Reported Integumentary: No Symptoms Reported Hematologic/Lymphatic: No Symptoms Reported Endocrine: No Symptoms Reported Psychiatric: No Symptoms Reported All Other Systems: Reviewed and Negative PE Vital Signs Vitals: Vital Signs Temperature 98.0 F Pulse Rate 81 Pulse Rate 82 Pulse Rate 87 Pulse Rate 92 Pulse Rate 98 Pulse Rate 89 Respiratory Rate 24 Blood Pressure 131/77 Blood Pressure 124/81 Blood Pressure 140/83 Blood Pressure 142/92 O2 Sat by Pulse Oximetry 93 O2 Sat by Pulse Oximetry 92 O2 Sat by Pulse Oximetry 93 O2 Sat by Pulse Oximetry 94 O2 Sat by Pulse Oximetry 95 O2 Sat by Pulse Oximetry 96 General Limitations: No Limitations General Appearance: Alert and Anxious Head Head Exam: Normal Inspection Eyes Eye exam: Normal Appearance ENT ENT Exam: Normal Exam Neck Neck Exam: Normal Inspection Chest Chest Inspection: Normal Inspection Respiratory Respiratory Exam: Normal Lung Sounds Bilat and Other (hyperventillation) Respiratory Exam: Bilateral: Clear to Auscultation Cardiovascular Cardiovascular Exam: Regular Rate and Normal Rhythm Abdominal Exam Abdominal Exam: Normal Inspection, Normal Bowel Sounds and Soft Extremities Extremities Exam: Normal Inspection Back Back Exam: Normal Inspection Neurologic Neurological Exam: Alert and Oriented X3 Psychiatric Psychiatric Exam: Normal Affect and Normal Mood Skin Skin Exam: Warm, Dry, Intact and Normal Color COURSE Treatment Treatment: Discussed findings with patient elevated D-dimer patient is allergic to iodine. Discussed with Dr. Mohan will admit ROR Labs Reviewed 05/27/25 23:37 05/27/25 23:37 Laboratory: WBC 6.1 X10^3/uL (3.6-10.0) 05/27/25 23:37 RBC 5.33 X10^6/uL (4.7-6.0) 05/27/25 23:37 Hgb 16.2 g/dL (13.5-18.0) 05/27/25 23:37 Hct 48.1 % (42.0-54.0) 05/27/25 23:37 MCV 90.2 fL (80.0-100.0) 05/27/25 23:37 MCH 30.4 pg (27.0-34.0) 05/27/25 23:37 MCHC 33.6 g/dL (33.0-35.0) 05/27/25 23:37 RDW 13.4 % (11.6-16.5) 05/27/25 23:37 Plt Count 229 X10^3/uL (150.0-450.0) 05/27/25 23:37 MPV 7.4 fL (7.4-11.0) 05/27/25 23:37 Neut % (Auto) 69.9 % (42.0-75.0) 05/27/25 23:37 Lymph % (Auto) 16.1 % (21.0-51.0) L 05/27/25 23:37 [place] % (Auto) 8.9 % (0.0-13.0) 05/27/25 23:37 Eos % (Auto) 4.6 % (0.9-2.9) H 05/27/25 23:37 Baso % (Auto) 0.5 % (0.2-1.0) 05/27/25 23:37 Neut # (Auto) 4.3 x10^3/uL (2.2-4.8) 05/27/25 23:37 Lymph # (Auto) 1.0 X10^3/uL (1.3-2.9) L 05/27/25 23:37 [place] # (Auto) 0.5 x10^3/uL (0.3-0.8) 05/27/25 23:37 Eos # (Auto) 0.3 x10^3/uL (0.0-0.2) H 05/27/25 23:37 Baso # (Auto) 0.0 X10^3/uL (0.0-0.1) 05/27/25 23:37 Absolute Nucleated RBC 0.2 /100WBC 05/27/25 23:37 D-Dimer 1.38 ug/ml (0.0-0.57) H 05/27/25 23:37 Sodium 139 mmol/L (136-145) 05/27/25 23:37 Corrected Sodium TNP 05/27/25 23:37 Potassium 4.0 mmol/L (3.5-5.1) 05/27/25 23:37 Chloride 103 mmol/L (98-107) 05/27/25 23:37 Carbon Dioxide 29.4 mmol/L (21-32) 05/27/25 23:37 BUN 16 mg/dL (7-18) 05/27/25 23:37 Creatinine 1.06 mg/dL (0.70-1.30) 05/27/25 23:37 Est GFR (MDRD) Af Amer > 60 (>60) 05/27/25 23:37 Est GFR (MDRD) Non-Af > 60 (>60) 05/27/25 23:37 Glucose 110 mg/dL (65-99) H 05/27/25 23:37 Calcium 8.6 mg/dL (8.5-10.1) 05/27/25 23:37 Corrected Calcium TNP 05/27/25 23:37 Total Bilirubin 0.30 mg/dL (0.2-1.0) 05/27/25 23:37 AST 19 Units/L (15-37) 05/27/25 23:37 ALT 25 Units/L (12-78) 05/27/25 23:37 Alkaline Phosphatase 99 Units/L (46-116) 05/27/25 23:37 Creatine Kinase 246 Units/L (39-308) 05/27/25 23:37 Troponin I High Sens < 4.0 ng/L (4.0-60.0) L 05/27/25 23:37 B-Natriuretic Peptide 18.8 pg/mL (0-79) 05/27/25 23:37 Total Protein 7.7 g/dL (6.4-8.2) 05/27/25 23:37 Albumin 3.6 g/dL (3.4-5.0) 05/27/25 23:37 Globulin 4.1 g/dL (2.5-4.5) 05/27/25 23:37 Albumin/Globulin Ratio 0.9 Ratio (1.1-2.1) L 05/27/25 23:37 EKG Rate: 98 [place]: Normal Rhythm: NSR and PVCs Block: None ST: Nonsp Opioid Opioid Risk Tool Age (Rik box if 16-45): No History of Preadolescent Sexual Abuse: No Total: 0 Total Score Risk Category: Low Risk Copyright: Carlos Enrique WILKINS predicting aberrant behaviors Discharge Plan Diagnosis Discharge Problem: Shortness of breath, D-dimer, elevated Discharge Plan Patient Disposition: ADMITTED INPATIENT Condition: Stable Prescriptions: No Action ciprofloxacin HCl [Cipro] 500 mg Tablet 500 mg PO Q12H Qty: 14 0RF hydrocodone-acetaminophen 5-325 mg Tablet 1 tab PO Q4H MDD 6 PRN (Reason: Pain) Qty: 20 0RF Health Concerns: Post Hospitalization: new medications and changes needed to prevent readmission or further decline. Pt educated and given instructions on all concerns. Plan of Treatment: Continue with present treatment and follow up plan. Pt is to keep follow up appointment as instructed and take medications as ordered. Orders to Discharge Patient Discharge Orders: Transfer (Routine); Ordered 05/28/25 Ordered By: Floyd He Follow ups/Referrals Follow ups/Referrals: NFD,None [Primary Care Provider] - 3 days Instructions Print Language: ECUADOREAN
[2025-05-28] MEDS ORDERED: NORCO 5/325 MG TAB PO PRN (01:21)
[2025-05-28] MEDS ORDERED: CONSULT PHARMACY - POTASSIUM & MAGNESIUM XX SCH ×2 (01:21→06:00)
[2025-05-28] MEDS ORDERED: ULTRAM PO PRN (01:21)
[2025-05-28] MEDS: TYLENOL 325 MG TAB PO PRN (01:28)
[2025-05-28 04:58] LABS: MEAN PLATELET VOLUME 8.0 fL (7.4-11.0); RED CELL DISTRIBUTION WIDTH 13.4 % (11.6-16.5)
[2025-05-28 05:09] LABS: COR NA(FOR HYPERGLY) 140 mmol/L (136-145); CREATININE 0.96 mg/dL (0.70-1.30); eGFR NON BLACK RACES > 60 (>60)
--- NOTE | 2025-05-28 06:10 | RAD ---
EXAM: CHEST, 1 VIEW HISTORY: Patient ambulatory in triage with c/o "can't breathe". Patient screaming stating "I need to see a doctor, don't ask me any questions until I see a doctor". Patient refuses to answer any questions at this time.; HX OF PE SX: GLEN CALVILLO COMPARISON: 05/16/2024 FINDINGS: The trachea is midline. The cardiac silhouette is unremarkable . The lungs are clear without focal infiltrate or effusion. The bony thorax is unremarkable. IMPRESSION: Normal chest THIS IS AN ELECTRONICALLY VERIFIED FINAL REPORT 05/28/2025 6:07 AM - Electronically signed by Jt Stallings MD
[2025-05-28] MEDS ORDERED: DUONEB 0.5 MG/3 MG (3 mL) NEB ONE (09:50)
[2025-05-28] MEDS ORDERED: PULMICORT NEB TX 0.5 MG NEB ONE (09:50)
--- NOTE | 2025-05-28 09:50 | DR.H&P ---
H&P History & Physical for Day of: H&P Date: 05/28/25 Chief Complaint Chief Complaint: sob History of Present Illness History of Present Illness: Patient is a 49-year-old male with a past medical history of tobacco use presented with increased shortness of breath. He also reports having productive cough and wheezing since yesterday. ER workup included labs which showed elevated D-dimer, negative troponin and BNP. Chest x-ray was negative. Patient does have an allergy to iodine therefore CTA chest was not ordered. VQ scan is pending for today. He is currently on 2 L nasal cannula. Labs/imaging reviewed: - WBC 5.6 hemoglobin 15.6 potassium 3.8 creatinine 0.96 - Chest x-ray reviewed Plan: Admit to [facility]. Follow VQ scan results. Start Levaquin, bronchodilators and Solu-Medrol. Order AIT panel. Wean oxygen as tolerated to keep sats more than 92%. Replace electrolytes as per protocol. Monitor a.m. labs and imaging. Time spent for clinical assessment, reviewing labs/imaging, physical exam, decision making and documentation greater than 45 mins. Past Medical History Additional Medical History: Past medical history: none noted. Family history positive for diabetes mellitus type 2, common cancer, coronary artery disease, history of myocardial infarction, and hypertension. Past Surgical History Surgical History: Appendectomy and Cholecystectomy Family History Family Medical History: Diabetes Mellitus, Cancer and Hypertension Social History Does patient currently use any type of tobacco product: No Have you used tobacco products in the last 12 months: Yes Type of Tobacco Use: None Does any household member use tobacco: Yes Alcohol Use: DAILY Drug Use: Marijuana Medications Home Medications: Home Medications Medication Instructions Recorded Confirmed Type NK 05/28/25 05/28/25 History Allergies Allergies Allergy/AdvReac Type Severity Reaction Status Date / Time iodine Allergy Verified 05/15/24 21:29 SEAFOOD Allergy Verified 05/15/24 21:29 Labs 05/28/25 04:23 05/28/25 04:23 Labs: Laboratory WBC 5.6 X10^3/uL (3.6-10.0) 05/28/25 04:23 RBC 5.17 X10^6/uL (4.7-6.0) 05/28/25 04:23 Hgb 15.6 g/dL (13.5-18.0) 05/28/25 04:23 Hct 46.6 % (42.0-54.0) 05/28/25 04:23 MCV 90.1 fL (80.0-100.0) 05/28/25 04:23 MCH 30.2 pg (27.0-34.0) 05/28/25 04:23 MCHC 33.6 g/dL (33.0-35.0) 05/28/25 04:23 RDW 13.4 % (11.6-16.5) 05/28/25 04:23 Plt Count 215 X10^3/uL (150.0-450.0) 05/28/25 04:23 MPV 8.0 fL (7.4-11.0) 05/28/25 04:23 Neut % (Auto) 70.8 % (42.0-75.0) 05/28/25 04:23 Lymph % (Auto) 16.7 % (21.0-51.0) L 05/28/25 04:23 [place] % (Auto) 7.5 % (0.0-13.0) 05/28/25 04:23 Eos % (Auto) 4.3 % (0.9-2.9) H 05/28/25 04:23 Baso % (Auto) 0.7 % (0.2-1.0) 05/28/25 04:23 Neut # (Auto) 4.0 x10^3/uL (2.2-4.8) 05/28/25 04:23 Lymph # (Auto) 0.9 X10^3/uL (1.3-2.9) L 05/28/25 04:23 [place] # (Auto) 0.4 x10^3/uL (0.3-0.8) 05/28/25 04:23 Eos # (Auto) 0.2 x10^3/uL (0.0-0.2) 05/28/25 04:23 Baso # (Auto) 0.0 X10^3/uL (0.0-0.1) 05/28/25 04:23 Absolute Nucleated RBC 0.0 /100WBC 05/28/25 04:23 D-Dimer 1.38 ug/ml (0.0-0.57) H 05/27/25 23:37 Sodium 140 mmol/L (136-145) 05/28/25 04:23 Corrected Sodium 140 mmol/L (136-145) 05/28/25 04:23 Potassium 3.8 mmol/L (3.5-5.1) 05/28/25 04:23 Chloride 104 mmol/L (98-107) 05/28/25 04:23 Carbon Dioxide 25.3 mmol/L (21-32) 05/28/25 04:23 BUN 13 mg/dL (7-18) 05/28/25 04:23 Creatinine 0.96 mg/dL (0.70-1.30) 05/28/25 04:23 Est GFR (MDRD) Af Amer > 60 (>60) 05/28/25 04:23 Est GFR (MDRD) Non-Af > 60 (>60) 05/28/25 04:23 Glucose 111 mg/dL (65-99) H 05/28/25 04:23 Calcium 8.8 mg/dL (8.5-10.1) 05/28/25 04:23 Corrected Calcium TNP 05/28/25 04:23 Magnesium 2.0 mg/dL (2.0-2.9) 05/28/25 04:23 Total Bilirubin 0.30 mg/dL (0.2-1.0) 05/28/25 04:23 AST 20 Units/L (15-37) 05/28/25 04:23 ALT 24 Units/L (12-78) 05/28/25 04:23 Alkaline Phosphatase 89 Units/L (46-116) 05/28/25 04:23 Creatine Kinase 246 Units/L (39-308) 05/27/25 23:37 Troponin I High Sens < 4.0 ng/L (4.0-60.0) L 05/27/25 23:37 B-Natriuretic Peptide 18.8 pg/mL (0-79) 05/27/25 23:37 Total Protein 7.4 g/dL (6.4-8.2) 05/28/25 04:23 Albumin 3.4 g/dL (3.4-5.0) 05/28/25 04:23 Globulin 4.0 g/dL (2.5-4.5) 05/28/25 04:23 Albumin/Globulin Ratio 0.9 Ratio (1.1-2.1) L 05/28/25 04:23 Review of Systems Constitutional: No Symptoms Reported Eyes: No Symptoms Reported ENT: No Symptoms Reported Respiratory: Cough, Shortness of Breath and Sputum Cardiovascular: Chest Pain Gastrointestinal: No Symptoms Reported Genitourinary: No Symptoms Reported Musculoskeletal: No Symptoms Reported Skin: No Symptoms Reported Neurological: No Symptoms Reported Physical Exam Vital Signs: Vital Signs Temperature 97.9 F Pulse Rate [Left] 80 Respiratory Rate 30 Respiratory Rate 22 Blood Pressure [Left Arm] 138/76 O2 Sat by Pulse Oximetry 95 Oriented: Normal Respiratory: Rhonchi Throughout and Wheezes Throughout Cardiovascular: Normal Auscultation: Bowel Sounds: Normal Palpation: Normal Tenderness: Normal Skin: Normal Musculoskeletal: Normal Psychiatric: Normal Mood Description: Calm Affect: Normal Speech Pattern: Clear and Appropriate Assessment/Plan (1) D-dimer, elevated: Status: Acute (2) Shortness of breath: Status: Acute (3) COPD exacerbation: Status: Acute Review H&P Reviewed: Yes Patient was examined?: Yes
[2025-05-28] MEDS: DUONEB 0.5 MG/3 MG (3 mL) NEB SCH (09:52)
[2025-05-28] MEDS: PULMICORT NEB TX 0.5 MG NEB SCH (09:53)
[2025-05-28] MEDS ORDERED: NS 250 ML IV 250 ML IV ONE (10:03)
[2025-05-28] MEDS: LEVAQUIN PREMIX IV 500 MG 500 MG/100 ML BAG IV SCH (10:10)
[2025-05-28] MEDS: NS 250 ML IV 25 ML IV PRN (10:10)
--- NOTE | 2025-05-28 14:02 | NM ---
EXAM: VQ/VENTILLATION & PERFUSION SC HISTORY: elevated d-dimer, SOB allergic to iodine and seafood; 30.7mCi 99mTc DTPA aerosol 6.4mCi 99mTc MAA COMPARISON: Chest radiograph 05/27/2025 TECHNIQUE: 6.4 mCi Tc-99m MAA were injected intravenously. 30.7 mCi Tc-99m aerosolized DTPA was inhaled. Chest images in multiple positions were obtained within 10 minutes. FINDINGS: Multiple bilateral matched areas of perfusion and ventilation defects are noted. No corresponding abnormality seen on the chest radiograph. This is a low probability for pulmonary embolus. IMPRESSION: 1. Low probability for pulmonary embolus THIS IS AN ELECTRONICALLY VERIFIED FINAL REPORT 05/28/2025 1:59 PM - Electronically signed by Gunner Miller MD
[2025-05-29 05:39] LABS: MEAN PLATELET VOLUME 7.9 fL (7.4-11.0); RED CELL DISTRIBUTION WIDTH 13.4 % (11.6-16.5)
[2025-05-29 05:54] LABS: COR CA(FOR HYPOALB) 9.5 mg/dL (8.5-10.1); COR NA(FOR HYPERGLY) 140 mmol/L (136-145); CREATININE 1.07 mg/dL (0.70-1.30); eGFR NON BLACK RACES > 60 (>60)
[2025-05-29 11:05] VITALS: BP 134/65; PULSE 103; RESP 20; TEMP 97.6; O2SAT 94
--- NOTE | 2025-05-31 14:08 | W.DIS.FURT ---
Summary of Discharge Discharge Summary of Date Date of Exam: 05/29/25 Admission Date Date of Admission: 05/28/25 Admission Diagnosis Patient Problems (Updated 05/28/25 @ 09:50 by Penelope Mohan MD) D-dimer, elevated (Acute) R79.89 Shortness of breath (Acute) R06.02 Hospital Course: Patient is a 49-year-old male with a past medical history of tobacco use presented with increased shortness of breath. He also reports having productive cough and wheezing since yesterday. ER workup included labs which showed elevated D-dimer, negative troponin and BNP. Chest x-ray was negative. Patient does have an allergy to iodine therefore CTA chest was not ordered. VQ scan showed low burden for PE. He was started on IV antibiotics, bronchodilators and steroids for COPD exacerbation. He was weaned off oxygen. His labs were monitored daily and electrolytes replaced as needed. He was feeling better, ambulating without any distress. He was stable to be discharged home on oral antibiotics, steroids and albuterol inhaler. He will follow-up with PCP as scheduled. Vital Signs: Vital Signs (72 hours) 05/27/25 23:19 05/27/25 23:23 05/27/25 23:23 Temperature 98.0 F Pulse Rate 89 98 H Pulse Rate [Left] Respiratory Rate 24 Blood Pressure 142/92 140/83 Blood Pressure [Left Arm] O2 Sat by Pulse Oximetry 96 95 Oxygen Delivery Method Room Air Room Air Oxygen Flow Rate FIO2% 05/27/25 23:30 05/27/25 23:30 05/27/25 23:45 Temperature Pulse Rate 92 H 87 Pulse Rate [Left] Respiratory Rate Blood Pressure 124/81 Blood Pressure [Left Arm] O2 Sat by Pulse Oximetry 94 L 93 L Oxygen Delivery Method Room Air Room Air Oxygen Flow Rate FIO2% 05/28/25 00:00 05/28/25 00:00 05/28/25 00:15 Temperature Pulse Rate 82 81 Pulse Rate [Left] Respiratory Rate Blood Pressure 131/77 Blood Pressure [Left Arm] O2 Sat by Pulse Oximetry 92 L 93 L Oxygen Delivery Method Room Air Room Air Oxygen Flow Rate FIO2% 05/28/25 00:30 05/28/25 00:31 05/28/25 00:31 Temperature Pulse Rate 63 84 Pulse Rate [Left] Respiratory Rate Blood Pressure 146/84 Blood Pressure [Left Arm] O2 Sat by Pulse Oximetry 93 L 93 L Oxygen Delivery Method Room Air Room Air Oxygen Flow Rate FIO2% 05/28/25 00:45 05/28/25 01:00 05/28/25 01:01 Temperature Pulse Rate 89 83 87 Pulse Rate [Left] Respiratory Rate Blood Pressure Blood Pressure [Left Arm] O2 Sat by Pulse Oximetry 92 L Oxygen Delivery Method Room Air Oxygen Flow Rate FIO2% 05/28/25 01:01 05/28/25 01:06 05/28/25 01:17 Temperature Pulse Rate Pulse Rate [Left] Respiratory Rate Blood Pressure 143/87 Blood Pressure [Left Arm] O2 Sat by Pulse Oximetry 92 L Oxygen Delivery Method Room Air Nasal Cannula Oxygen Flow Rate 2 FIO2% 05/28/25 01:17 05/28/25 01:28 05/28/25 01:33 Temperature 99.0 F Pulse Rate Pulse Rate [Left] 86 Respiratory Rate 24 34 H Blood Pressure Blood Pressure [Left Arm] 142/90 O2 Sat by Pulse Oximetry 94 L Oxygen Delivery Method Nasal Cannula Room Air Oxygen Flow Rate 2 FIO2% 28 05/28/25 02:28 05/28/25 04:00 05/28/25 07:00 Temperature 97.9 F Pulse Rate Pulse Rate [Left] 80 Respiratory Rate 22 30 H Blood Pressure Blood Pressure [Left Arm] 138/76 O2 Sat by Pulse Oximetry 95 Oxygen Delivery Method Nasal Cannula Nasal Cannula Oxygen Flow Rate 2 2 FIO2% 05/28/25 08:00 05/28/25 09:29 05/28/25 09:53 Temperature 97.7 F Pulse Rate 91 H Pulse Rate [Left] 85 Respiratory Rate 20 Blood Pressure Blood Pressure [Left Arm] 135/74 O2 Sat by Pulse Oximetry 91 L 94 L Oxygen Delivery Method Nasal Cannula Nasal Cannula Oxygen Flow Rate 2 2 FIO2% 28 05/28/25 12:00 05/28/25 16:00 05/28/25 19:00 Temperature 97.7 F 99.3 F Pulse Rate Pulse Rate [Left] 91 H 90 Respiratory Rate 20 19 Blood Pressure Blood Pressure [Left Arm] 123/66 146/70 O2 Sat by Pulse Oximetry 94 L 98 Oxygen Delivery Method Nasal Cannula Nasal Cannula Nasal Cannula Oxygen Flow Rate 2 2 2 FIO2% 05/28/25 20:00 05/28/25 20:09 05/28/25 20:09 Temperature 97.5 F L Pulse Rate 88 Pulse Rate [Left] 87 Respiratory Rate 19 Blood Pressure Blood Pressure [Left Arm] 133/81 O2 Sat by Pulse Oximetry 93 L 97 Oxygen Delivery Method Nasal Cannula Nasal Cannula Oxygen Flow Rate 2 2 FIO2% 28 05/29/25 00:00 05/29/25 04:00 05/29/25 05:55 Temperature 98.3 F 97.9 F Pulse Rate 75 Pulse Rate [Left] 75 85 Respiratory Rate 19 19 Blood Pressure Blood Pressure [Left Arm] 147/86 112/64 O2 Sat by Pulse Oximetry 94 L 94 L 99 Oxygen Delivery Method Nasal Cannula Nasal Cannula Oxygen Flow Rate 2 2 FIO2% 05/29/25 08:22 Temperature Pulse Rate Pulse Rate [Left] Respiratory Rate Blood Pressure Blood Pressure [Left Arm] O2 Sat by Pulse Oximetry Oxygen Delivery Method Room Air Oxygen Flow Rate 2 FIO2% 28 Labs: Laboratory Last Values WBC 8.9 X10^3/uL (3.6-10.0) 05/29/25 05:08 RBC 5.36 X10^6/uL (4.7-6.0) 05/29/25 05:08 Hgb 16.2 g/dL (13.5-18.0) 05/29/25 05:08 Hct 48.4 % (42.0-54.0) 05/29/25 05:08 MCV 90.3 fL (80.0-100.0) 05/29/25 05:08 MCH 30.2 pg (27.0-34.0) 05/29/25 05:08 MCHC 33.4 g/dL (33.0-35.0) 05/29/25 05:08 RDW 13.4 % (11.6-16.5) 05/29/25 05:08 Plt Count 251 X10^3/uL (150.0-450.0) 05/29/25 05:08 MPV 7.9 fL (7.4-11.0) 05/29/25 05:08 Neut % (Auto) 89.7 % (42.0-75.0) H 05/29/25 05:08 Lymph % (Auto) 7.3 % (21.0-51.0) L 05/29/25 05:08 [place] % (Auto) 2.5 % (0.0-13.0) 05/29/25 05:08 Eos % (Auto) 0.1 % (0.9-2.9) L 05/29/25 05:08 Baso % (Auto) 0.4 % (0.2-1.0) 05/29/25 05:08 Neut # (Auto) 8.0 x10^3/uL (2.2-4.8) H 05/29/25 05:08 Lymph # (Auto) 0.6 X10^3/uL (1.3-2.9) L 05/29/25 05:08 [place] # (Auto) 0.2 x10^3/uL (0.3-0.8) L 05/29/25 05:08 Eos # (Auto) 0.0 x10^3/uL (0.0-0.2) 05/29/25 05:08 Baso # (Auto) 0.0 X10^3/uL (0.0-0.1) 05/29/25 05:08 Absolute Nucleated RBC 0.1 /100WBC 05/29/25 05:08 D-Dimer 1.38 ug/ml (0.0-0.57) H 05/27/25 23:37 Sodium 138 mmol/L (136-145) 05/29/25 05:08 Corrected Sodium 140 mmol/L (136-145) 05/29/25 05:08 Potassium 4.1 mmol/L (3.5-5.1) 05/29/25 05:08 Chloride 103 mmol/L (98-107) 05/29/25 05:08 Carbon Dioxide 23.3 mmol/L (21-32) 05/29/25 05:08 BUN 13 mg/dL (7-18) 05/29/25 05:08 Creatinine 1.07 mg/dL (0.70-1.30) 05/29/25 05:08 Est GFR (MDRD) Af Amer > 60 (>60) 05/29/25 05:08 Est GFR (MDRD) Non-Af > 60 (>60) 05/29/25 05:08 Glucose 189 mg/dL (65-99) H 05/29/25 05:08 Calcium 8.9 mg/dL (8.5-10.1) 05/29/25 05:08 Corrected Calcium 9.5 mg/dL (8.5-10.1) 05/29/25 05:08 Magnesium 2.0 mg/dL (2.0-2.9) 05/28/25 04:23 Total Bilirubin 0.40 mg/dL (0.2-1.0) 05/29/25 05:08 AST 18 Units/L (15-37) 05/29/25 05:08 ALT 30 Units/L (12-78) 05/29/25 05:08 Alkaline Phosphatase 93 Units/L (46-116) 05/29/25 05:08 Creatine Kinase 246 Units/L (39-308) 05/27/25 23:37 Troponin I High Sens < 4.0 ng/L (4.0-60.0) L 05/27/25 23:37 B-Natriuretic Peptide 18.8 pg/mL (0-79) 05/27/25 23:37 Total Protein 7.7 g/dL (6.4-8.2) 05/29/25 05:08 Albumin 3.3 g/dL (3.4-5.0) L 05/29/25 05:08 Globulin 4.4 g/dL (2.5-4.5) 05/29/25 05:08 Albumin/Globulin Ratio 0.8 Ratio (1.1-2.1) L 05/29/25 05:08 Reason For Visit: SHORTNESS OF BREATH Discharge Diagnosis All Active Problems (Updated 05/28/25 @ 09:50 by Penelope Mohan MD) COPD exacerbation (Acute) D-dimer, elevated (Acute) Shortness of breath (Acute) Encounter for removal of nitesh (Acute) Cholecystitis (Acute) Cholelithiasis (Acute) Right upper quadrant pain (Acute) Sinusitis, acute (Acute) Gastroenteritis (Acute) Paronychia of finger of right hand (Acute) Chest pain (Acute) Elevated d-dimer (Acute) Pulmonary embolism (Acute) Plan of Treatment: Continue with present treatment and follow up plan. Pt is to keep follow up appointment as instructed and take medications as ordered. Discharge Medications Discharge Medications: iodine Allergy (Verified 05/15/24 21:29) SEAFOOD Allergy (Verified 05/15/24 21:29) New Prescriptions albuterol sulfate 90 mcg/actuation aerosol inhaler (Ventolin HFA) 2 puff inhalation Q6H PRN #6.7 grams 05/29/25 [Rx] levofloxacin 500 mg tablet 500 mg PO QDAY 5 days #5 tabs 05/29/25 [Rx] methylprednisolone 4 mg tablets in a dose pack See Rx Instructions PO .COMPLEX #21 ea 05/29/25 [Rx] Discharge Disposition Discharge Disposition: To home Discharge Condition: Stable Discharge Plan Discharge Plan Hospital Course: Patient is a 49-year-old male with a past medical history of tobacco use presented with increased shortness of breath. He also reports having productive cough and wheezing since yesterday. ER workup included labs which showed elevated D-dimer, negative troponin and BNP. Chest x-ray was negative. Patient does have an allergy to iodine therefore CTA chest was not ordered. VQ scan showed low burden for PE. He was started on IV antibiotics, bronchodilators and steroids for COPD exacerbation. He was weaned off oxygen. His labs were monitored daily and electrolytes replaced as needed. He was feeling better, ambulating without any distress. He was stable to be discharged home on oral antibiotics, steroids and albuterol inhaler. He will follow-up with PCP as scheduled. Patient Disposition: 01 HOME, SELF-CARE Condition: Stable Health Concerns: Post Hospitalization: new medications and changes needed to prevent readmission or further decline. Pt educated and given instructions on all concerns. Care Plan Goals: Problem: Pain/Alteration in Comfort Goal: Improve/ Resolve Pain; Achieve Pain Tolerance Instructions: Take pain medications as prescribed. Contact your primary care provider if your pain is unrelieved or worsens. Follow up with primary care provider as directed. Plan of Treatment: Continue with present treatment and follow up plan. Pt is to keep follow up appointment as instructed and take medications as ordered. Prescription drug monitoring program results: PDMP reviewed and no concerns iden tified Prescriptions: New levofloxacin 500 mg tablet 500 mg PO QDAY 5 Days Qty: 5 0RF methylprednisolone 4 mg tablets,dose pack See Rx Instructions .ROUTE .COMPLEX Qty: 21 0RF Rx Instructions: orally per package directions albuterol sulfate [Ventolin HFA] 90 mcg/actuation HFA aerosol inhaler 2 puff inhalation Q6H PRNQty: 6.7 0RF Orders to Discharge Patient Discharge Orders: Discharge (Routine); Ordered 05/29/25 Ordered By: Penelope Mohan Follow ups/Referrals Follow ups/Referrals: Lamberto,Ann, BLADE OPERATOR [Nurse Practitioner, Unknown] - 06/05/25 2:00 pm Instructions Instructions: Shortness of Breath, Adult, [id number], Cough, Adult Stand Alone Forms: Excuse From Work or School, Find Help Web Site, Post Hospital Follow Up Care Print Language: ARG[place]
== END 2025-05-29 10:15 | disposition home or self-care (01) ==
LOC: ER 23:19 → MED/SURG 23:19
PROVIDERS: ADMIT Internal Medicine; ATTEND Internal Medicine
DX: Z59.868 Other specified financial insecurity; Z86.711 Personal history of pulmonary embolism; B97.89 Other viral agents as the cause of diseases classified elsewhere; J44.1 Chronic obstructive pulmonary disease with (acute) exacerbation; R79.1 Abnormal coagulation profile; B97.19 Other enterovirus as the cause of diseases classified elsewhere; R07.89 Other chest pain; B96.3 Hemophilus influenzae [H. influenzae] as the cause of diseases classified elsewhere; R79.89 Other specified abnormal findings of blood chemistry; Z16.29 Resistance to other single specified antibiotic; R06.02 Shortness of breath